=== PATIENT | male | born 1955 | race Caucasian/White ===

== ENCOUNTER → 2017-09-09 | Outpatient (CLI) | payer MEDICARE | LOC: WOUNDCARE 09:05 | PROVIDERS: ATTEND Surgery | DX: L02.215 Cutaneous abscess of perineum (principal); L89.150 Pressure ulcer of sacral region, unstageable; L89.322 Pressure ulcer of left buttock, stage 2; I63.9 Cerebral infarction, unspecified | CPT/HCPCS: 99204 ==

== ENCOUNTER 2017-10-29 23:20 | Inpatient (IN) | payer MEDICARE ==
[~2017-10-29] VITALS: Ht 170.2 cm; Wt 108.9 kg
[~2017-10-29 23:20] MED LIST: ATOR10TA66 PO; CLOP75TA28 PO; DOXA2TAB PO; FURO-124 PO; GABA-488 PO; LABE200T3 PO; LEVE500T6 PO; LISI1TAB8 PO; LOSA50TA36 PO; METO50TA15 PO; OMEG1CAP58 PO; OXYC-471 PO; PRD20T PO; ROPI1TAB2 PO; TAMS0.4C2 PO; TIZA4CAP8 PO
[2017-10-30] VITALS (29 sets, daily range): BP systolic 81–148; BP diastolic 51–86
[2017-10-30] MEDS ORDERED: LACTATED RINGERS 1,000 ML IV ONE ×4 (00:21→03:13)
--- NOTE | 2017-10-30 02:40 | ED General ---
General Stated Complaint: AMS Source of Information: Patient, EMS, Skilled Nursing Records Exam Limitations: No Limitations History of Present Illness Time Seen by Provider: 00:03 Initial Comments patient brought to the ER by EMS with a chief complaint that arm in skilled nursing that the patients blood pressure 70/40 in the been dealing with this the past 3-4 days. The patient arrived from [facility] around 10/25/17 and was being treated with antibiotics and wound care for a sacral wound. He is on a linezolid , Flagyl, cefepime as well as 4 mg of methylprednisolone daily. Patient does not give a whole lot of history other than tell me he hopes that he feels all right and his butt hurts. EMS reports they had a blood pressure about 90/60 when they picked him up on a manual cuff. Patient has on his peng hydrocodone 10 /325 as well as tizanidine. Allergies and Home Medications Allergies Coded Allergies: No Known Drug Allergies (Unverified , 09/19/17) Home Medications Atorvastatin Calcium 10 Mg Tablet, 10 MG PO HS, (Reported) Clopidogrel Bisulfate 75 Mg Tablet, 75 MG PO DAILY, (Reported) Doxazosin Mesylate 2 Mg Tablet, 2 MG PO DAILY, (Reported) Furosemide 40 Mg Tablet, 40 MG PO BID, (Reported) Gabapentin 300 Mg Capsule, 300 MG PO TID, (Reported) Labetalol HCl 200 Mg Tablet, 200 MG PO BID, (Reported) Levetiracetam 500 Mg Tablet, 500 MG PO BID, (Reported) Lisinopril/Hydrochlorothiazide 1 Each Tablet, 1 EACH PO DAILY, (Reported) Losartan Potassium 50 Mg Tablet, 50 MG PO DAILY, (Reported) Metoprolol Tartrate 50 Mg Tablet, 50 MG PO BID, (Reported) [place]-3 Fatty Acids/Fish Oil 1 Each Capsule, 1 EACH PO DAILY, (Reported) Oxycodone HCl/Acetaminophen 1 Each Tablet, 1 EACH PO BID PRN for PAIN-MODERATE, (Reported) Prednisone 20 Mg Tab, 60 MG PO DAILY, #22 (Reported) Take 3 tabs(60mg)daily,decrease by 1/2 tab(10mg)every other day. Ropinirole HCl 1 Mg Tablet, 1 MG PO HS, (Reported) Tamsulosin HCl 0.4 Mg Cap.er.24h, 0.4 MG PO DAILY, (Reported) Tizanidine HCl 4 Mg Capsule, 4 MG PO BID, (Reported) Constitutional: see HPI (patient does not give much meaningful review of systems patient has clinical condition.), No chills, No fever Respiratory: No cough, No short of breath Cardiovascular: No chest pain, No palpitations Gastrointestinal: No abdominal pain, No nausea Genitourinary: other (fully catheter of unknown length of time) Skin: other (sacral decub with pain) Past Ddnktau-Cwyacx-Fjgdfz Hx Patient Social History Alcohol Use: Denies Use Recreational Drug Use: No Recent Foreign Travel: No Contact w/Someone Who Travel: No Recent Hopitalizations: Yes (cva) Immunizations Up To Date Date of Pneumonia Vaccine: Sep 14, 2013 Date of Influenza Vaccine: Aug 12, 2017 Seasonal Allergies Seasonal Allergies: Yes Surgeries History of Surgeries: Yes Surgeries: Appendectomy, Gallbladder, Orthopedic Respiratory History of Respiratory Disorde: Yes Respiratory Disorders: COPD Cardiovascular History of Cardiac Disorders: Yes Cardiac Disorders: Coronary Artery Disease, Heart Attack Neurological History of Neurological Disord: Yes Neurological Disorders: Stroke Genitourinary History of Genitourinary Disor: No Musculoskeletal History of Musculoskeletal Dis: Yes Musculoskeletal Disorders: Chronic Back Pain Endocrine History of Endocrine Disorders: Yes Endocrine Disorders: Diabetes, Insulin dep Cancer History of Cancer: No Family Medical History Significant Family History: No Pertinent Family Hx Physical Exam-Suspected Sepsis Physical Exam Vital Signs Vital Sign - Last 12Hours 10/29/17 23:20 Temp 97.1 Pulse 72 Resp 18 B/P (MAP) 127/72 (90) Pulse Ox 97 O2 Delivery Nasal Cannula O2 Flow Rate 2.00 Capillary Refill : General Appearance: Mild Distress, Obese Eyes: Bilateral Eye Normal Inspection, Bilateral Eye PERRL, Bilateral Eye EOMI HEENT: PERRL/EOMI, TMs Normal, Normal ENT Inspection, Pharynx Normal Neck: Full Range of Motion, Normal Inspection, Non Tender, Supple Respiratory: Chest Non Tender, Lungs Clear, Normal Breath Sounds, No Accessory Muscle Use, No Respiratory Distress Cardiovascular: No Murmur, Normal Peripheral Pulses, Tachycardia, Other (your regular rate) Gastrointestinal: Non Tender, Soft Extremity: Normal Capillary Refill, Normal Inspection, No Pedal Edema Neurologic/Psychiatric: Alert, Other (oriented to person only; able to communicate his pain and desire for something to drink.) Skin: other (there is a large open tunneling wound over the sacrum down to the bone stage IV. Has been debrided recently and has packing in it as well as a dressing over it. It is putting off a modest amount of serous colored drainage on the dressing. There is no purulence and only a mild malodor. The skin around it is ST red but blanches and appears viable.) Focused Exam Evaluation Lactate Level Laboratory Tests 10/29/17 23:53: Lactic Acid Level 2.94*H 10/30/17 02:00: Lactic Acid Level 2.88*H Lactic Acid Level Laboratory Tests Test 10/30/17 02:00 Lactic Acid Level 2.88 MMOL/L (0.50-2.00) *H Progress/Results/Core Measures Suspected Sepsis SIRS Temperature: Pulse: Respiratory Rate: Laboratory Tests 10/29/17 23:53: White Blood Count 20.1H Blood Pressure / Mean: Laboratory Tests 10/29/17 23:53: Lactic Acid Level 2.94*H 10/30/17 02:00: Lactic Acid Level 2.88*H Laboratory Tests 10/29/17 23:53: Creatinine 2.01H, INR Comment 1.1, Platelet Count 223, Total Bilirubin 0.6 Results/Orders Lab Results Laboratory Tests Test 10/29/17 23:50 10/29/17 23:53 10/30/17 02:00 Range/Units Urine Color YELLOW Urine Clarity CLOUDY H Urine pH 5 5-9 Urine Specific [place] 1.020 1.016-1.022 Urine Protein 3+ H NEGATIVE Urine Glucose (UA) NEGATIVE NEGATIVE Urine Ketones 1+ H NEGATIVE Urine Nitrite NEGATIVE NEGATIVE Urine Bilirubin NEGATIVE NEGATIVE Urine Urobilinogen NORMAL NORMAL MG/DL Urine Leukocyte Esterase 3+ H NEGATIVE Urine RBC (Auto) 5+ H NEGATIVE Urine RBC TNTC H /HPF Urine WBC TNTC H /HPF Urine Crystals NONE /LPF Urine Bacteria MOD /HPF Urine Casts NONE /LPF Urine Mucus NEGATIVE /LPF Urine Culture Indicated YES White Blood Count 20.1 H 4.3-11.0 10^3/uL Red Blood Count 3.57 L 4.35-5.85 10^6/uL Hemoglobin 10.8 L 13.3-17.7 G/DL Hematocrit 33 L 40-54 % Mean Corpuscular Volume 91 80-99 FL Mean Corpuscular Hemoglobin 30 25-34 PG Mean Corpuscular Hemoglobin Concent 33 32-36 G/DL Red Cell Distribution Width 16.6 H 10.0-14.5 % Platelet Count 223 130-400 10^3/uL Mean Platelet Volume 10.6 H 7.4-10.4 FL Neutrophils (%) (Auto) 72 42-75 % Lymphocytes (%) (Auto) 17 12-44 % Monocytes (%) (Auto) 11 0-12 % Eosinophils (%) (Auto) 1 0-10 % Basophils (%) (Auto) 0 0-10 % Neutrophils # (Auto) 14.4 H 1.8-7.8 X 10^3 Lymphocytes # (Auto) 3.3 1.0-4.0 X 10^3 Monocytes # (Auto) 2.2 H 0.0-1.0 X 10^3 Eosinophils # (Auto) 0.1 0.0-0.3 10^3/uL Basophils # (Auto) 0.1 0.0-0.1 10^3/uL Neutrophils % (Manual) 75 % Lymphocytes % (Manual) 14 % Monocytes % (Manual) 6 % Eosinophils % (Manual) 1 % Band Neutrophils 4 % Blood Morphology Comment NORMAL Prothrombin Time 14.2 12.2-14.7 SEC INR Comment 1.1 0.8-1.4 Activated Partial Thromboplast Time 29 24-35 SEC Sodium Level 130 L 135-145 MMOL/L Potassium Level 3.4 L 3.6-5.0 MMOL/L Chloride Level 92 L 98-107 MMOL/L Carbon Dioxide Level 25 21-32 MMOL/L Anion Gap 13 5-14 MMOL/L Blood Urea Nitrogen 45 H 7-18 MG/DL Creatinine 2.01 H 0.60-1.30 MG/DL Estimat Glomerular Filtration Rate 34 BUN/Creatinine Ratio 22 Glucose Level 73 70-105 MG/DL Lactic Acid Level 2.94 *H 2.88 *H 0.50-2.00 MMOL/L Calcium Level 8.2 L 8.5-10.1 MG/DL Magnesium Level 1.4 L 1.8-2.4 MG/DL Total Bilirubin 0.6 0.1-1.0 MG/DL Aspartate Amino Transf (AST/SGOT) 14 5-34 U/L Alanine Aminotransferase (ALT/SGPT) 26 0-55 U/L Alkaline Phosphatase 175 H 40-136 U/L Total Protein 5.2 L 6.4-8.2 GM/DL Albumin 2.7 L 3.2-4.5 GM/DL My Orders Orders - ARMOND OLMSTEAD Cbc With Automated Diff (10/30/17 03:11) Comprehensive Metabolic Panel (10/30/17 03:11) Lactic Acid Analyzer (10/30/17 03:11) Blood Culture (10/30/17 03:11) Sputum Culture (10/30/17 03:11) Ua Culture If Indicated (10/30/17 03:11) Protime With Inr (10/30/17 03:11) Partial Thromboplastin Time (10/30/17 03:11) Chest 1 View, Ap/Pa Only (10/30/17 03:11) O2 (10/30/17 03:11) Saline Lock/Iv-Start (10/30/17 03:11) Vital Signs Adult Sepsis Patie Q1H (10/30/17 03:11) Remove Rings In Anticipation O (10/30/17 03:11) Lactated Ringers (Lr 1000 Ml Iv Solution (10/30/17 03:11) Magnesium (10/30/17 03:11) Lactated Ringers (Lr 1000 Ml Iv Solution (10/30/17 03:13) Ns Iv 1000 Ml (Sodium Chloride 0.9%) (10/30/17 03:30) Urine Culture (10/29/17 23:50) Manual Differential (10/29/17 23:53) Acetaminophen Tablet (Tylenol Tablet) (10/30/17 03:45) Vital Signs/I&O Vital Sign - Last 12Hours 10/29/17 10/29/17 10/30/17 23:20 23:25 03:40 Temp 97.1 97.1 Pulse 72 78 Resp 18 17 B/P (MAP) 127/72 (90) Pulse Ox 97 98 98 O2 Delivery Nasal Cannula Nasal Cannula Nasal Cannula O2 Flow Rate 2.00 2.00 2.00 Capillary Refill : Progress Note : Time: 02:38 Progress Note Sepsis with some rough-looking urinalysis. The patient is already on Flonase liquid which would cover against MRSA and cefepime to cover against pseudomonas and other gram negatives as well as Flagyl. Unlikely that he is still having a urinary tract infection. Probably irritation and colonization from urinary catheter. Based on what little history I could obtain from EMS he is probably having an iatrogenic hypotension from his Lasix, amlodipine, Dr. Sutton, metoprolol. We will hold these medications and put him in the ICU fluids. So far his blood pressure is been stable. Were unsure how long he's been on the methylprednisolone so we'll see how he is doing in the morning whether we need to have the inpatient service wean the medicine, or continue the medicine. Patient had a tachycardia with what felt like an irregular pulse but he is adamantly refusing an EKG. We'll then catch it upstairs. Diagnostic Imaging Diagonstic Imaging: Xray Plain Films/CT/US/NM/MRI: chest (1v) Comments Small pleural effusion in the left lower lung. No comparisons. Reviewed: Reviewed by Me Departure Impression Impression: Primary Impression: Hypotension, iatrogenic Additional Impressions: Sacral decubitus ulcer, stage IV Indwelling Rios catheter present Disposition: ADMITTED INPATIENT Condition: Stable Admissions Decision to Admit Reason: Admit from ER (General) Decision to Admit/Date: Oct 30, 2017 Time/Decision to Admit Time: 02:00 Departure-Patient Inst. Referrals: JESUS MANUEL MCFARLANE DO (PCP) Primary Care Physician Copy Copies To 1: JOE GROVER MD, TITUS J Oct 30, 2017 02:40
[2017-10-30 03:21] LABS: CREATININE SERUM 2.01 MG/DL (0.60-1.30); POTASSIUM 3.4 MMOL/L (3.6-5.0)
[2017-10-30 03:22] LABS: ALBUMIN 2.7 GM/DL (3.2-4.5); BILIRUBIN,TOTAL 0.6 MG/DL (0.1-1.0); CALCIUM 8.2 MG/DL (8.5-10.1); INR 1.1 (0.8-1.4); MAGNESIUM 1.4 MG/DL (1.8-2.4); PROTHROMBIN TIME PATIENT 14.2 SEC (12.2-14.7); TOTAL PROTEIN 5.2 GM/DL (6.4-8.2)
[2017-10-30 03:23] LABS: KETONES,URINE 1+ (NEGATIVE); NITRITE,URINE NEGATIVE (NEGATIVE); PH,URINE 5 (5-9); PROTEIN,URINE 3+ (NEGATIVE)
[2017-10-30 03:24] LABS: BILIRUBIN,URINE NEGATIVE (NEGATIVE); LEUKOCYTE ESTERASE ,URINE 3+ (NEGATIVE); UROBILINOGEN,URINE NORMAL (NORMAL); WBC,URINE TNTC /HPF
[2017-10-30 03:27] LABS: BASOPHILS # (AUTO) 0.1 10^3/uL (0.0-0.1); BASOPHILS % (AUTO) 0 % (0-10); EOSINOPHILS # (AUTO) 0.1 10^3/uL (0.0-0.3); EOSINOPHILS % (AUTO) 1 % (0-10); LYMPHOCYTES # (AUTO) 3.3 X 10^3 (1.0-4.0); LYMPHOCYTES % (AUTO) 17 % (12-44); MEAN CORPUSCULAR HEMOGLOBIN 30 PG (25-34); MEAN CORPUSCULAR HGB CONC 33 G/DL (32-36); MEAN CORPUSCULAR VOLUME 91 FL (80-99); MEAN PLATELET VOLUME 10.6 FL (7.4-10.4); MONOCYTES # (AUTO) 2.2 X 10^3 (0.0-1.0); MONOCYTES % (AUTO) 11 % (0-12); NEUTROPHILS # (AUTO) 14.4 X 10^3 (1.8-7.8); NEUTROPHILS % (AUTO) 72 % (42-75); PLATELET COUNT 223 10^3/uL (130-400); RED BLOOD COUNT 3.57 10^6/uL (4.35-5.85); RED CELL DISTRIBUTION WIDTH 16.6 % (10.0-14.5); WHITE BLOOD COUNT 20.1 10^3/uL (4.3-11.0)
[2017-10-30 03:28] LABS: BAND NEUTROPHILS 4 %; EOSINOPHILS % (MANUAL) 1 %; LYMPHOCYTES % (MANUAL) 14 %; NEUTROPHILS % (MANUAL) 75 %
[2017-10-30] MEDS ORDERED: NS IV 1000 ML 1,000 ML IV SCH (03:30)
[2017-10-30] MEDS ORDERED: ACETAMINOPHEN 500 MG TAB (TYLENOL) PO ONE (03:45)
[2017-10-30] MEDS: NS IV 1000 ML 1,000 ML IV SCH ×6 (04:56→18:28)
[2017-10-30] MEDS ORDERED: LINEZOLID 600MG/300ML IVPB (PRE-MIX) IV SCH ×2 (05:00→21:00)
[2017-10-30] MEDS ORDERED: NS IV PRN (05:00)
[2017-10-30] MEDS ORDERED: CEFEPIME 2 GM/NS 50 ML IVPB IV SCH ×2 (05:00)
[2017-10-30 05:25] LABS: BASOPHILS # (AUTO) 0.1 10^3/uL (0.0-0.1); BASOPHILS % (AUTO) 1 % (0-10); EOSINOPHILS # (AUTO) 0.1 10^3/uL (0.0-0.3); EOSINOPHILS % (AUTO) 1 % (0-10); LYMPHOCYTES # (AUTO) 2.5 X 10^3 (1.0-4.0); LYMPHOCYTES % (AUTO) 17 % (12-44); MEAN CORPUSCULAR HEMOGLOBIN 30 PG (25-34); MEAN CORPUSCULAR HGB CONC 33 G/DL (32-36); MEAN CORPUSCULAR VOLUME 91 FL (80-99); MEAN PLATELET VOLUME 10.5 FL (7.4-10.4); MONOCYTES # (AUTO) 1.5 X 10^3 (0.0-1.0); MONOCYTES % (AUTO) 11 % (0-12); NEUTROPHILS # (AUTO) 10.4 X 10^3 (1.8-7.8); NEUTROPHILS % (AUTO) 71 % (42-75); PLATELET COUNT 207 10^3/uL (130-400); RED BLOOD COUNT 3.53 10^6/uL (4.35-5.85); RED CELL DISTRIBUTION WIDTH 16.6 % (10.0-14.5); WHITE BLOOD COUNT 14.6 10^3/uL (4.3-11.0)
[2017-10-30] MEDS: metroNIDAZOLE 500 MG (FLAGYL) TAB PO SCH ×3 (05:41→21:06)
[2017-10-30 05:49] LABS: ALBUMIN 2.5 GM/DL (3.2-4.5); BILIRUBIN,TOTAL 0.6 MG/DL (0.1-1.0); CALCIUM 7.9 MG/DL (8.5-10.1); CREATININE SERUM 1.68 MG/DL (0.60-1.30); MAGNESIUM 1.1 MG/DL (1.8-2.4); PHOSPHORUS 3.2 MG/DL (2.3-4.7); POTASSIUM 3.1 MMOL/L (3.6-5.0); TOTAL PROTEIN 4.8 GM/DL (6.4-8.2)
[2017-10-30] MEDS: inSUlin (REGULAR) HUMAN 1 UNIT/0.01 ML (CHARGE PER UNIT) SC SCH ×3 (06:22→17:58)
[2017-10-30] MEDS: POTASSIUM CL 10 MEQ/50 ML IVPB (PRE-MIX) IV SCH ×4 (07:26→10:23)
[2017-10-30] MEDS: MAGNESIUM 1 GM/D5W 100 ML IVPB IV SCH ×2 (07:27→08:42)
--- NOTE | 2017-10-30 08:09 | Diagnostic Imaging Report ---
Portable upright radiograph of the chest. INDICATION: Sepsis. FINDINGS: There is a right internal jugular central venous catheter with the tip at the cavoatrial junction. There is moderate cardiomegaly. There is mid right lung infiltrates or atelectasis and left basilar patchy infiltrate or atelectasis is also suggested. There is a possible small left pleural effusion. No pneumothorax. No significant change from the previous exam. IMPRESSION: Right perihilar and left basilar infiltrates or atelectasis. Cardiomegaly. Dictated by: Dictated on workstation # [id number]
--- NOTE | 2017-10-30 08:10 | History & Physical-Hospitalist ---
HPI History of Present Illness: HPI/Chief Complaint Pt is a 62yoCM with a reported history of CVA, COPD, HTN, seizure disorder who presented for hypotension from his NH. He is unable to provide me any history other than telling me he feels bad. He believes he transferred here from [facility] and does not recall being in a NH. I called and spoke with his RN at [facility]. She reports they received him on 10/25 form [facility]. She states he had a "stroke" a few months ago that left him with "bilateral weakness" and he developed a sacral pressure wound at a different NH during his recovery from the stroke. He was discharged home from that NH and quickly was readmitted to the hospital for "wound infection" and underwent debridement at [facility] on an unknown date. He nurse also reports that he coded on 10/09 at [facility] but she is unsure the details of that event or his recovery. He has an IJ in placed and the NH is also unsure the duration of it. She reports that he is normally able to feed himself and oriented x4 but the past few days has been more drowsy and disoriented. Source: patient, old records Exam Limitations: clinical condition Date Seen 10/30/17 Time Seen by Provider: 07:45 Attending Physician Michael Sanon MD PCP Warren Kwong DO Referring Physician Date of Admission Oct 30, 2017 at 02:30 Home Medications & Allergies Home Medications Reviewed patient Home Medication Reconciliation Form Allergies Allergies Coded Allergies No Known Drug Allergies (Nfrdfnrxel42/9/17) Past Vpocjlw-Bwtymy-Tfcxyo Hx Patient Social History Marrital Status: Alcohol Use: Denies Use Recreational Drug Use: No Smoking Status: Unknown if Ever Smoked 2nd Hand Smoke Exposure: No Physical Abuse Screen: No Sexual Abuse: No Recent Foreign Travel: No Contact w/other who traveled: No Recent Hopitalizations: Yes (cva) Recent Infectious Disease Expo: No Immunizations Up To Date Pediatric: No Date of Pneumonia Vaccine: Sep 14, 2013 Date of Influenza Vaccine: Aug 12, 2017 Seasonal Allergies Seasonal Allergies: Yes Surgeries Yes Appendectomy, Gallbladder, Orthopedic Respiratory Yes Cardiovascular Yes Coronary Artery Disease, Heart Attack Neurological Yes Stroke Genitourinary No Gastrointestinal Yes Gastroesophageal Reflux Musculoskeletal Yes Chronic Back Pain Endocrine History of Endocrine Disorders: Yes Endocrine Disorders: Diabetes, Insulin dep HEENT History of HEENT Disorders: No Cancer No Integumentary History of Skin or Integumenta: Yes (CHRONIC SACRAL WOUND) Family Medical History Significant Family History: No Pertinent Family Hx Review of Systems ROS-Unable to Obtain: Clinical condition Constitutional: see HPI Physical Exam Physical Exam Vital Signs Vital Sign - Last 12Hours 10/29/17 23:20 Temp 97.1 Pulse 72 Resp 18 B/P (MAP) 127/72 (90) Pulse Ox 97 O2 Delivery Nasal Cannula O2 Flow Rate 2.00 Capillary Refill : Less Than 3 Seconds General Appearance: Chronically ill HEENT: PERRL/EOMI, Moist Mucous Membranes, No Scleral Icterus (L), No Scleral Icterus (R) Neck: Non Tender, Supple Respiratory: Lungs Clear, No Respiratory Distress Cardiovascular: Regular Rate, Rhythm, No Murmur Gastrointestinal: Normal Bowel Sounds, Non Tender, Soft Extremity: Normal Capillary Refill, No Calf Tenderness, No Pedal Edema Neurologic/Psychiatric: Alert, Other (oriented to self and place- not to situation) Results Results/Procedures Lab Laboratory Tests 10/29/17 23:53 10/30/17 05:06 Assessment/Plan Admission Diagnosis Severe Sepsis Diagnosis/Problems Diagnosis/Problems (1) Severe sepsis Status: Acute Assessment & Plan: WBC 20 with tachycardia Infection source ?UTI or bloodstream from prolonged IJ or sacral wound or possible infiltrate on CXR Urine culture sent, Blood cultures sent MAP has remained above 65 Cont on Vanc, Cefepime, and Flagyl Order placed for PICC- will DC IJ when PICC in place (2) Acute kidney injury superimposed on chronic kidney disease Status: Acute Assessment & Plan: Likely due to sepsis Continue IVF History of acute renal failure believed to have required temp HD Monitor UOP (currently adequate) (3) COPD (chronic obstructive pulmonary disease) Status: Chronic Assessment & Plan: MAT protocol Pulm consulted, appreciate recs Qualifiers: Qualified Codes: J44.9 - Chronic obstructive pulmonary disease, unspecified (4) Normocytic anemia Status: Chronic Assessment & Plan: Near baseline (5) Hypokalemia Assessment & Plan: On protocol (6) Hypomagnesemia Assessment & Plan: On protocol (7) Essential (primary) hypertension Assessment & Plan: Hold antihypertensives (8) Seizure disorder Assessment & Plan: Continue [facility] Clinical Quality Measures DVT/VTE Risk/Contraindication: Risk Factor Score Per Nursin RFS Level Per Nursing on Admit: 4+=Very High CONTRERAS MATT MD Oct 30, 2017 8:10 am
[2017-10-30] MEDS: MICONAZOLE 2% POWDER (DESENEX AF) 90 GM TOP SCH ×2 (08:33→21:06)
[2017-10-30] MEDS: LACTOBACILLUS Acidoph/Bulgar (LACTINEX/FLORANEX) TAB PO SCH ×2 (08:34→21:06)
--- NOTE | 2017-10-30 08:51 | Pulmonary Consultation ---
History of Present Illness History of Present Illness Date of Consultation 10/30/17 08:39 Time Seen by Provider: 08:39 Date of Admission History of Present Illness 62yo with hx of CVA, COPD, seizure disorder presented to ED from [facility] secondary to hypotension. Pt was hospitalized at [facility] secondary to his CVA until and has developed a sacral pressure ulcer. Pt has also recently undergone wound debridement at [facility]. Pt also coded while at [facility] details are unknown. Pt still has a IJ in place of unknown duration. pt is confused and it is difficult to obtain accurate ROS. I am consulted for ICU management. Allergies and Home Medications Allergies Coded Allergies: No Known Drug Allergies (Unverified , 09/19/17) Home Medications Atorvastatin Calcium 10 Mg Tablet, 10 MG PO HS, (Reported) Clopidogrel Bisulfate 75 Mg Tablet, 75 MG PO DAILY, (Reported) Doxazosin Mesylate 2 Mg Tablet, 2 MG PO DAILY, (Reported) Furosemide 40 Mg Tablet, 40 MG PO BID, (Reported) Gabapentin 300 Mg Capsule, 300 MG PO TID, (Reported) Labetalol HCl 200 Mg Tablet, 200 MG PO BID, (Reported) Levetiracetam 500 Mg Tablet, 500 MG PO BID, (Reported) Lisinopril/Hydrochlorothiazide 1 Each Tablet, 1 EACH PO DAILY, (Reported) Losartan Potassium 50 Mg Tablet, 50 MG PO DAILY, (Reported) Metoprolol Tartrate 50 Mg Tablet, 50 MG PO BID, (Reported) [place]-3 Fatty Acids/Fish Oil 1 Each Capsule, 1 EACH PO DAILY, (Reported) Oxycodone HCl/Acetaminophen 1 Each Tablet, 1 EACH PO BID PRN for PAIN-MODERATE, (Reported) Prednisone 20 Mg Tab, 60 MG PO DAILY, #22 (Reported) Take 3 tabs(60mg)daily,decrease by 1/2 tab(10mg)every other day. Ropinirole HCl 1 Mg Tablet, 1 MG PO HS, (Reported) Tamsulosin HCl 0.4 Mg Cap.er.24h, 0.4 MG PO DAILY, (Reported) Tizanidine HCl 4 Mg Capsule, 4 MG PO BID, (Reported) Past Eukzztg-Eqkutc-Hvgmjb Hx Patient Social History Alcohol Use: Denies Use Recreational Drug Use: No Smoking Status: Unknown if Ever Smoked 2nd Hand Smoke Exposure: No Recent Foreign Travel: No Contact w/Someone Who Travel: No Recent Infectious Disease Expo: No Recent Hopitalizations: Yes (cva) Physical Abuse: No Sexual Abuse: No Immunizations Up To Date PED Vaccines UTD: No Date of Pneumonia Vaccine: Sep 14, 2013 Date of Influenza Vaccine: Aug 12, 2017 Seasonal Allergies Seasonal Allergies: Yes Surgeries History of Surgeries: Yes Surgeries: Appendectomy, Gallbladder, Orthopedic Respiratory History of Respiratory Disorde: Yes Respiratory Disorders: COPD Cardiovascular History of Cardiac Disorders: Yes Cardiac Disorders: Coronary Artery Disease, Heart Attack Neurological History of Neurological Disord: Yes Neurological Disorders: Stroke Genitourinary History of Genitourinary Disor: No Gastrointestinal History of Gastrointestinal Di: Yes Gastrointestinal Disorders: Gastroesophageal Reflux Musculoskeletal History of Musculoskeletal Dis: Yes Musculoskeletal Disorders: Chronic Back Pain Endocrine History of Endocrine Disorders: Yes Endocrine Disorders: Diabetes, Insulin dep HEENT History of HEENT Disorders: No Cancer History of Cancer: No Psychosocial Suicide Risk Score: 0 Integumentary History of Skin or Integumenta: Yes (CHRONIC SACRAL WOUND) Family Medical History Significant Family History: No Pertinent Family Hx Review of Systems Time Seen by Provider: 09:13 Exam Exam Vital Signs Date Time Temp Pulse Resp B/P (MAP) Pulse Ox O2 Delivery O2 Flow Rate FiO2 10/30/17 08:00 89 10 101/65 (77) 98 Nasal Cannula 2.00 10/30/17 07:20 98.0 10/30/17 07:15 90 14 102/56 (71) 98 Nasal Cannula 2.00 10/30/17 07:00 89 10 101/58 (72) 99 Nasal Cannula 3.00 10/30/17 06:59 89 10/30/17 06:15 88 20 103/53 (70) 99 Nasal Cannula 3.00 10/30/17 06:00 91 14 89/54 (66) 99 Nasal Cannula 3.00 10/30/17 05:45 88 13 101/54 (70) 98 Nasal Cannula 3.00 10/30/17 05:30 86 12 82/58 (66) 99 Nasal Cannula 3.00 10/30/17 05:15 87 13 103/51 (68) 98 Nasal Cannula 3.00 10/30/17 05:00 87 31 101/58 (72) 99 Nasal Cannula 3.00 10/30/17 04:45 86 13 81/58 (66) 99 Nasal Cannula 3.00 10/30/17 04:30 85 17 96/71 (79) 99 Nasal Cannula 3.00 10/30/17 04:15 85 14 84/56 (65) 99 Nasal Cannula 3.00 10/30/17 04:00 86 14 94/65 (75) 98 Nasal Cannula 3.00 10/30/17 03:59 86 10/30/17 03:50 97.7 85 14 97/66 (76) 99 Nasal Cannula 3.00 10/30/17 03:45 99 Nasal Cannula 3.00 10/30/17 03:40 97.1 78 17 98 Nasal Cannula 2.00 10/29/17 23:25 98 Nasal Cannula 2.00 10/29/17 23:20 97.1 72 18 127/72 (90) 97 Nasal Cannula 2.00 I & O 10/30/17 06:59 Intake Total 3100 ml Output Total 1775 ml Balance 1325 ml General Appearance: No Apparent Distress, WD/WN HEENT: PERRL/EOMI, Moist Mucous Membranes Neck: Non Tender, Supple Respiratory: Lungs Clear, No Respiratory Distress Cardiovascular: Regular Rate, Rhythm, No Murmur Capillary Refill: Less Than 3 Seconds Extremity: Normal Capillary Refill, No Calf Tenderness Neurologic/Psychiatric: Alert, Oriented x3, Normal Mood/Affect Skin: Normal Color, Warm/Dry Results Lab Laboratory Tests 10/29/17 23:53 10/30/17 05:06 Assessment/Plan Assessment/Plan Severe Sepsis secondary to wound r/o bacteremia from Right IJ that was placed at [facility] prior to his discharge. -Blood cultures with 2 from central line -Culture central line tip -D/C central line and obtain PICC -Urine UA and C&S -Change abx to vanco, cefepime, and Flagyl -obtain records from [facility] Metabolic lactic acidosis -IVF ARF -IVF and monitor Altered MS / metabolic encephalopathy -secondary to sepsis COPD - not in AE Seizure disorder -Keppra 255 Clinical Quality Measures DVT/VTE Risk/Contraindication: Risk Factor Score Per Nursin RFS Level Per Nursing on Admit: 4+=Very High SARAH OROPEZA DO Oct 30, 2017 08:51
[2017-10-30] MEDS ORDERED: NYSTATIN POWDER 100,000 UNITS 15 GM BTL TOP SCH (09:00)
[2017-10-30] MEDS ORDERED: inSUlin ASPART (NovoLOG) 1 UNIT/0.01 ML (CHARGE PER UNIT) SC SCH (09:00)
[2017-10-30] MEDS ORDERED: PHARMACY TO DOSE IV SCH (09:15)
[2017-10-30] MEDS ORDERED: GABA-488 PO (09:18)
[2017-10-30] MEDS ORDERED: ATOR40TA70 PO (09:18)
[2017-10-30] MEDS ORDERED: ACET-2650 PO (09:18)
[2017-10-30] MEDS ORDERED: ASPI-983 PO (09:18)
[2017-10-30] MEDS ORDERED: CEFE2VIA5 IV (09:18)
[2017-10-30] MEDS ORDERED: AMLO10TA2 PO (09:18)
[2017-10-30] MEDS ORDERED: LACT1CAP39 PO (09:18)
[2017-10-30] MEDS ORDERED: NYST15CR TOP (09:18)
[2017-10-30] MEDS ORDERED: CLOP75TA69 PO (09:18)
[2017-10-30] MEDS ORDERED: METR500T21 PO (09:18)
[2017-10-30] MEDS ORDERED: INSU100V6 SQ (09:18)
[2017-10-30] MEDS ORDERED: SENN-140 PO (09:18)
[2017-10-30] MEDS ORDERED: RT-ALBUINH IH (09:18)
[2017-10-30] MEDS ORDERED: TIZA2TAB3 PO (09:18)
[2017-10-30] MEDS ORDERED: METH4TAB11 PO (09:18)
[2017-10-30] MEDS ORDERED: LINE600I6 IV (09:18)
[2017-10-30] MEDS ORDERED: BISA10SU6 RC (09:18)
[2017-10-30] MEDS ORDERED: HYDR-3820 PO (09:18)
[2017-10-30] MEDS ORDERED: CALC500T3 PO (09:18)
[2017-10-30] MEDS ORDERED: PANT40TA2 PO (09:18)
[2017-10-30] MEDS ORDERED: INSU100V SQ (09:18)
[2017-10-30] MEDS ORDERED: VANCOMYCIN 2000 MG/NS 500 ML IVPB IV NR ×2 (09:30)
[2017-10-30] MEDS: HYDROcodone/APAP 5 MG/325 MG (LORTAB) TAB PO PRN (13:12)
[2017-10-30 14:40] LABS: MAGNESIUM 1.6 MG/DL (1.8-2.4); POTASSIUM 3.6 MMOL/L (3.6-5.0)
--- NOTE | 2017-10-30 14:54 | ST Dysphagia Evaluation ---
Speech Evaluation-General Medical Diagnosis Severe Sepsis Onset Date: Oct 30, 2017 Therapy Diagnosis Therapy Diagnosis: Mild Oral Dysphagia Precautions Precautions: Aspiration Precautions/Isolations: Fall Prevention, Standard Precautions Referral Referring Physician: Dr. Raven Chahal Reason for Referral: Evaluation/Treatment Clinical Bedside Swallowing Evaluation Medical History Pertinent Medical History: CAD, COPD, CVA, DM, GERD Speech PLF/Current-Dysphagia Prior Level of Function The patient denied consistent signs/symptoms of aspiration prior to admission. Per patient, "sometimes bread and hamburger buns get stuck." The patient localized the globus sensation to the level of the proximal to mid esophagus. Subjective The patient was seated upright in bed upon entrance. The patient was agreeable to participation in the dysphagia evaluation and remained cooperative throughout the session. Per patient's RN, the patient swallowed his medication without signs/symptoms of aspiration. Cognitive Status Patient Orientation: Person, Place, Situation Oral Motor Skills Dentition: Natural (Lower/ Edentulous- Upper.) Ability to Follow Directions: Good The patient is NPO pending the results of the swallowing evaluation. Oral Expression Ability: Mild Impairment Voice Voice Phonatory-Based Quality: Harsh, Glottal Mathis Voice Pitch: Normal Voice Loudness: Mildly Soft/Quiet Face Facial Symmetry: Asymmetrical (A slight left labial droop appeared at rest.) Oral-Facial Assessment Oral-Facial Dentition: Normal Labial Seal Description: Normal Smile: Normal Puff Cheeks: Normal Lingual Protrusion: Normal Lingual ROM: Normal Lingual Strength: Normal Pharynx Velopharyngeal Move.: Normal Volitional Dry Swallow: Yes Voluntary Cough: Yes Can Clear Throat Volitionally: Yes Dysphagia Evaluation Consistencies Presented: Regular, Thin Liquid, Pureed - The patient displayed reduced mastication of solid consistencies which appeared secondary to absent upper dentition. - No pharyngeal deficits were noted throughout the evaluation. - No signs/symptoms of aspiration were demonstrated with multiple trials of thin liquid (via teaspoon, cup sip, or straw), puree, or solid consistencies. The patient's vocal quality remained clear and his SpO2% remained at 97% throughout the evaluation. Dietary Recommendations: Mechanical Soft Liquid Recommendations: Thin Swallowing Precautions: Alternate Liquids/Solids, Small Bites and Sips, Sitting Upright 90 Degrees Dysphagia Evaluation Summary Mild oral dysphagia characterized by reduced mastication of solid consistencies. Speech-Plan Treatment Plan Speech Therapy Treatment Plan: Discontinue ST Evaluation, only. Frequency: 1 time per month Estimated Hrs Per Day: Other Rehab Potential: Good Safety Risks/Education Teaching Recipient: Patient Teaching Methods: Discussion Response to Teaching: Verbalize Understanding Education Topics Provided: Results, Recommendations, Plan of Care, Signs/Symptoms of Aspiration, Swallowing Strategies Time Speech Therapy Time In: 14:00 Speech Therapy Time Out: 14:15 Total Billed Time: 15 Billed Treatment Time 1, ALICE MONTGOMERY Oct 30, 2017 14:54
--- NOTE | 2017-10-30 18:40 | Wound Care Progress Note ---
Subjective Subjective Subjective/Events-last exam The patient is a 62 year old male known to me from a previous episode of care for the sacral pressure ulcer. The patient has had a complex intercurrent history of complications and care since last seen. He was most recently admitted for suspected sepsis with an infected sacral ulcer. He complains of pain in the sacral area. He has had a stroke. He has limited mobility. He was a resident in a LTC facility at the time of transfer to the hospital recently. PMH: CVA, COPD, DM, HTN, CAD, OR, previous cardiac arrest , seizure disorder. Review of Systems Date Seen by Provider: Oct 30, 2017 Time Seen by Provider: 17:15 General: No Chills Pulmonary: No Dyspnea Cardiovascular: No: Chest Pain Musculoskeletal: shoulder pain (L, when lying on that side.) Objective Exam Last Set of Vital Signs Vital Signs Date Time Temp Pulse Resp B/P (MAP) Pulse Ox O2 Delivery O2 Flow Rate FiO2 10/30/17 18:00 86 11 132/79 (96) 96 Nasal Cannula 2.00 10/30/17 15:13 98.0 Capillary Refill : Less Than 3 Seconds General: Alert, No Acute Distress Lungs: Normal Air Movement Skin: Other (Sacral ulcer --- Stellate wound 7.5 x 7.0 x 4.2 cm, base 90% granulation, 10% slough. Mod. s.s. drainage.) Results Lab Laboratory Tests 10/29/17 23:50: Urine Color YELLOW, Urine Clarity CLOUDYH, Urine pH 5, Urine Specific [place] 1.020, Urine Protein 3+H, Urine Glucose (UA) NEGATIVE, Urine Ketones 1+H, Urine Nitrite NEGATIVE, Urine Bilirubin NEGATIVE, Urine Urobilinogen NORMAL, Urine Leukocyte Esterase 3+H, Urine RBC (Auto) 5+H, Urine RBC TNTCH, Urine WBC TNTCH, Urine Crystals NONE, Urine Bacteria MOD, Urine Casts NONE, Urine Mucus NEGATIVE , Urine Culture Indicated YES 10/29/17 23:53: White Blood Count 20.1H, Red Blood Count 3.57L, Hemoglobin 10.8L, Hematocrit 33L , Mean Corpuscular Volume 91, Mean Corpuscular Hemoglobin 30, Mean Corpuscular Hemoglobin Concent 33, Red Cell Distribution Width 16.6H, Platelet Count 223, Mean Platelet Volume 10.6H, Neutrophils (%) (Auto) 72, Lymphocytes (%) (Auto) 17 , Monocytes (%) (Auto) 11, Eosinophils (%) (Auto) 1, Basophils (%) (Auto) 0, Neutrophils # (Auto) 14.4H, Lymphocytes # (Auto) 3.3, Monocytes # (Auto) 2.2H, Eosinophils # (Auto) 0.1, Basophils # (Auto) 0.1, Neutrophils % (Manual) 75, Lymphocytes % (Manual) 14, Monocytes % (Manual) 6, Eosinophils % (Manual) 1, Band Neutrophils 4, Blood Morphology Comment NORMAL, Prothrombin Time 14.2, INR Comment 1.1, Activated Partial Thromboplast Time 29, Sodium Level 130L, Potassium Level 3.4L, Chloride Level 92L, Carbon Dioxide Level 25, Anion Gap 13 , Blood Urea Nitrogen 45H, Creatinine 2.01H, Estimat Glomerular Filtration Rate 34, BUN/Creatinine Ratio 22, Glucose Level 73, Lactic Acid Level 2.94*H, Calcium Level 8.2L, Magnesium Level 1.4L, Total Bilirubin 0.6, Aspartate Amino Transf (AST/SGOT) 14, Alanine Aminotransferase (ALT/SGPT) 26, Alkaline Phosphatase 175H, Total Protein 5.2L, Albumin 2.7L 10/30/17 02:00: Lactic Acid Level 2.88*H 10/30/17 02:30: Lab Scanned Report LAB Reports 10/30/17 05:06: White Blood Count 14.6H, Red Blood Count 3.53L, Hemoglobin 10.7L, Hematocrit 32L , Mean Corpuscular Volume 91, Mean Corpuscular Hemoglobin 30, Mean Corpuscular Hemoglobin Concent 33, Red Cell Distribution Width 16.6H, Platelet Count 207, Mean Platelet Volume 10.5H, Neutrophils (%) (Auto) 71, Lymphocytes (%) (Auto) 17 , Monocytes (%) (Auto) 11, Eosinophils (%) (Auto) 1, Basophils (%) (Auto) 1, Neutrophils # (Auto) 10.4H, Lymphocytes # (Auto) 2.5, Monocytes # (Auto) 1.5H, Eosinophils # (Auto) 0.1, Basophils # (Auto) 0.1, Sodium Level 133L, Potassium Level 3.1L, Chloride Level 98, Carbon Dioxide Level 25, Anion Gap 10, Blood Urea Nitrogen 40H, Creatinine 1.68H, Estimat Glomerular Filtration Rate 42, BUN/ Creatinine Ratio 24, Glucose Level 73, Calcium Level 7.9L, Phosphorus Level 3.2 , Magnesium Level 1.1L, Total Bilirubin 0.6, Aspartate Amino Transf (AST/SGOT) 14, Alanine Aminotransferase (ALT/SGPT) 23, Alkaline Phosphatase 165H, Total Protein 4.8L, Albumin 2.5L 10/30/17 09:37: Lactic Acid Level 1.64 10/30/17 11:35: Glucometer 91 10/30/17 14:12: Potassium Level 3.6, Magnesium Level 1.6L 10/30/17 17:50: Glucometer 72 Microbiology 10/30/17 Blood Culture - Preliminary, Resulted No growth 10/29/17 Urine Culture - Preliminary, Resulted Yeast Species Assessment/Plan Assessment/Plan Assessment/Plan 1. Sacral pressure ulcer, Stage 4, present on admission. 2. Debility. 3. Diabetes mellitus, with ulcer of sacral area. Plan: Frequent repositioning, low air loss mattress, BID Dakin's dressings. Will follow in house and as out-patient after discharge. MARTIN JOHNSON MD Oct 30, 2017 18:40
[2017-10-30] MEDS ORDERED: inSUlin DETERMIR 1 UNIT/0.01 ML (LEVEMIR) CHARGE PER UNIT SQ SCH (21:00)
[2017-10-30] MEDS: LEVETIRACETAM 500 MG (KEPPRA) TAB PO SCH (21:05)
[2017-10-30] MEDS: rOPINIRole 1 MG (REQUIP) TABLET PO SCH (21:06)
[2017-10-30] MEDS: DAKIN'S 1/4 STRENGTH (0.125%) 473 ML BTL TOP SCH (21:06)
[2017-10-31] VITALS (15 sets, daily range): BP systolic 119–149; BP diastolic 61–86
[2017-10-31] MEDS: NS IV 1000 ML 1,000 ML IV SCH ×4 (01:15→17:51)
[2017-10-31] MEDS: HYDROcodone/APAP 5 MG/325 MG (LORTAB) TAB PO PRN ×4 (02:59→21:38)
[2017-10-31 05:17] LABS: WHITE BLOOD COUNT 15.3 10^3/uL (4.3-11.0)
[2017-10-31 05:18] LABS: BASOPHILS # (AUTO) 0.1 10^3/uL (0.0-0.1); BASOPHILS % (AUTO) 1 % (0-10); EOSINOPHILS # (AUTO) 0.1 10^3/uL (0.0-0.3); EOSINOPHILS % (AUTO) 1 % (0-10); LYMPHOCYTES % (AUTO) 13 % (12-44); MEAN CORPUSCULAR HEMOGLOBIN 31 PG (25-34); MEAN CORPUSCULAR HGB CONC 33 G/DL (32-36); MEAN CORPUSCULAR VOLUME 94 FL (80-99); MEAN PLATELET VOLUME 10.3 FL (7.4-10.4); MONOCYTES # (AUTO) 1.3 X 10^3 (0.0-1.0); MONOCYTES % (AUTO) 9 % (0-12); NEUTROPHILS # (AUTO) 11.8 X 10^3 (1.8-7.8); NEUTROPHILS % (AUTO) 77 % (42-75); PLATELET COUNT 189 10^3/uL (130-400); RED CELL DISTRIBUTION WIDTH 17.2 % (10.0-14.5)
[2017-10-31 05:43] LABS: ALANINE AMINOTRANSFERASE 22 U/L (0-55); ALBUMIN 2.5 GM/DL (3.2-4.5); ANION GAP 12 MMOL/L (5-14); ASPARTATE AMINO TRANSFERASE 17 U/L (5-34); BILIRUBIN,TOTAL 0.5 MG/DL (0.1-1.0); BLOOD UREA NITROGEN 29 MG/DL (7-18); BUN/CREATININE RATIO 26; CALCIUM 8.1 MG/DL (8.5-10.1); CARBON DIOXIDE 22 MMOL/L (21-32); CHLORIDE 106 MMOL/L (98-107); CREATININE SERUM 1.11 MG/DL (0.60-1.30); GFR ESTIMATED > 60; GLUCOSE 61 MG/DL (70-105); MAGNESIUM 1.6 MG/DL (1.8-2.4); PHOSPHORUS 2.1 MG/DL (2.3-4.7); POTASSIUM 3.4 MMOL/L (3.6-5.0); SODIUM 140 MMOL/L (135-145)
[2017-10-31] MEDS ORDERED: KCL 20 MEQ TAB (K-DUR) PO SCH (06:00)
[2017-10-31] MEDS ORDERED: POTASSIUM CL 10MEQ/50ML IVPB 50 ML IV SCH (06:00)
[2017-10-31] MEDS: inSUlin (REGULAR) HUMAN 1 UNIT/0.01 ML (CHARGE PER UNIT) SC SCH ×4 (06:00→18:20)
[2017-10-31] MEDS ORDERED: MAGNESIUM 1 GM/100 ML IVPB 100 ML IV SCH (06:00)
[2017-10-31] MEDS: metroNIDAZOLE 500 MG (FLAGYL) TAB PO SCH ×3 (06:35→21:38)
[2017-10-31] MEDS: predniSONE 5 MG TAB PO SCH (06:35)
[2017-10-31] MEDS: CEFEPIME 2 GM/NS 50 ML IVPB IV SCH ×2 (06:35)
--- NOTE | 2017-10-31 07:27 | Diagnostic Imaging Report ---
INDICATION: Sepsis and hypotension. 0553 hours. Portable semiupright view of the chest is obtained with comparison made to study of one day earlier. Overall heart size and pulmonary vascularity are within normal limits. There is mild right perihilar and basilar atelectasis. There is no pneumothorax or consolidation. IMPRESSION: Right perihilar and basilar atelectasis and/or pneumonitis, which may be slightly worsened compared to previous study. Dictated by: Dictated on workstation # [id number]
[2017-10-31] MEDS: POTASSIUM CL 10MEQ/50ML IVPB 50 ML IV SCH ×2 (07:57→07:58)
[2017-10-31] MEDS: VANCOMYCIN 1,750 MG/NS 500 ML IVPB IV SCH ×2 (08:01)
[2017-10-31] MEDS: LEVETIRACETAM 500 MG (KEPPRA) TAB PO SCH ×2 (08:04→21:38)
[2017-10-31] MEDS: ATORVASTATIN 40 MG (LIPITOR) TABLET PO SCH (08:04)
[2017-10-31] MEDS: CLOPIDOGREL 75 MG (PLAVIX) TABLET PO SCH (08:04)
[2017-10-31] MEDS: LACTOBACILLUS Acidoph/Bulgar (LACTINEX/FLORANEX) TAB PO SCH ×2 (08:04→21:38)
[2017-10-31] MEDS: PANTOPRAZOLE 40 MG (PROTONIX) TAB PO SCH (08:04)
[2017-10-31] MEDS: MICONAZOLE 2% POWDER (DESENEX AF) 90 GM TOP SCH ×2 (08:09→21:39)
[2017-10-31] MEDS: MAGNESIUM 1 GM/100 ML IVPB 100 ML IV SCH ×2 (09:30→10:20)
--- NOTE | 2017-10-31 13:35 | Progress Note-Hospitalist ---
Subjective HPI/CC On Admission Date Seen by Provider: Oct 31, 2017 Time Seen by Provider: 08:00 Pt is a 62yoCM with a reported history of CVA, COPD, HTN, seizure disorder who presented for hypotension from his NH. He is unable to provide me any history other than telling me he feels bad. He believes he transferred here from [facility] and does not recall being in a NH. I called and spoke with [facility] RN at [facility]. She reports they received him on 10/25 form [facility]. She states he had a "stroke" a few months ago that left him with "bilateral weakness" and he developed a sacral pressure wound at a different [place] during his recovery from the stroke. He was discharged home from that NH and quickly was readmitted to the hospital for "wound infection" and underwent debridement at [facility] on an unknown date. He nurse also reports that he coded on 10/09 at [facility] but she is unsure the details of that event or his recovery. He has an IJ in placed and the NH is also unsure the duration of it. She reports that he is normally able to feed himself and oriented x4 but the past few days has been more drowsy and disoriented. Subjective/Events-last exam Pt is much more alert today. Reports he feels better today and was able to tell me where he was and why he was here. He denied any complaints. Objective Exam Vital Signs Vital Sign - Last 12Hours 10/29/17 23:20 Temp 97.1 Pulse 72 Resp 18 B/P (MAP) 127/72 (90) Pulse Ox 97 O2 Delivery Nasal Cannula O2 Flow Rate 2.00 Capillary Refill : Less Than 3 Seconds General Appearance: No Apparent Distress, Chronically ill Respiratory: Lungs Clear, No Respiratory Distress Cardiovascular: Regular Rate, Rhythm, No Murmur Gastrointestinal: Normal Bowel Sounds, Non Tender, Soft Extremity: Non Tender, No Calf Tenderness Neurologic/Psychiatric: Alert, Oriented x3 Results/Procedures Lab Laboratory Tests 10/31/17 05:00 Assessment/Plan Assessment and Plan Assess & Plan/Chief Complaint Severe Sepsis Diagnosis/Problems Diagnosis/Problems (1) Severe sepsis Status: Resolved Assessment & Plan: WBC improving Infection source ?UTI or bloodstream from prolonged IJ or sacral wound or possible infiltrate on CXR Urine culture sent, Blood cultures sent Awaiting results MAP has remained above 65 Cont on Vanc, Cefepime, and Flagyl IJ cath culture sent (2) Acute kidney injury superimposed on chronic kidney disease Status: Resolved Assessment & Plan: Likely due to sepsis Continue IVF History of acute renal failure believed to have required temp HD Monitor UOP (currently adequate) (3) COPD (chronic obstructive pulmonary disease) Status: Chronic Assessment & Plan: MAT protocol Pulm consulted, appreciate recs Qualifiers: Qualified Codes: J44.9 - Chronic obstructive pulmonary disease, unspecified (4) Normocytic anemia Status: Chronic Assessment & Plan: Mild, trend (5) Hypokalemia Assessment & Plan: On protocol (6) Hypomagnesemia Assessment & Plan: On protocol (7) Essential (primary) hypertension Assessment & Plan: Hold antihypertensives for hypotension (8) Seizure disorder Assessment & Plan: Continue CONTRERAS Forman MD Oct 31, 2017 13:35
[2017-10-31] MEDS: rOPINIRole 1 MG (REQUIP) TABLET PO SCH (21:38)
[2017-11-01] VITALS: BP 167/78
[2017-11-01] MEDS: inSUlin (REGULAR) HUMAN 1 UNIT/0.01 ML (CHARGE PER UNIT) SC SCH ×4 (00:06→17:32)
[2017-11-01] MEDS: NS IV 1000 ML 1,000 ML IV SCH (00:18)
[2017-11-01] MEDS: DAKIN'S 1/4 STRENGTH (0.125%) 473 ML BTL TOP SCH ×2 (00:25→16:00)
[2017-11-01] MEDS: HYDROcodone/APAP 5 MG/325 MG (LORTAB) TAB PO PRN ×4 (03:38→18:53)
[2017-11-01] MEDS: metroNIDAZOLE 500 MG (FLAGYL) TAB PO SCH ×3 (03:45→20:30)
[2017-11-01 04:00] VITALS: BP 160/81
[2017-11-01] MEDS: predniSONE 5 MG TAB PO SCH (06:00)
[2017-11-01] MEDS: CEFEPIME 2 GM/NS 50 ML IVPB IV SCH ×2 (06:00)
[2017-11-01 06:28] LABS: BASOPHILS # (AUTO) 0.1 10^3/uL (0.0-0.1); BASOPHILS % (AUTO) 1 % (0-10); EOSINOPHILS # (AUTO) 0.1 10^3/uL (0.0-0.3); EOSINOPHILS % (AUTO) 1 % (0-10); LYMPHOCYTES # (AUTO) 2.2 X 10^3 (1.0-4.0); LYMPHOCYTES % (AUTO) 19 % (12-44); MEAN CORPUSCULAR HEMOGLOBIN 31 PG (25-34); MEAN CORPUSCULAR HGB CONC 32 G/DL (32-36); MEAN CORPUSCULAR VOLUME 95 FL (80-99); MEAN PLATELET VOLUME 9.9 FL (7.4-10.4); MONOCYTES % (AUTO) 8 % (0-12); NEUTROPHILS # (AUTO) 8.2 X 10^3 (1.8-7.8); NEUTROPHILS % (AUTO) 71 % (42-75); PLATELET COUNT 163 10^3/uL (130-400); RED BLOOD COUNT 3.05 10^6/uL (4.35-5.85); RED CELL DISTRIBUTION WIDTH 17.1 % (10.0-14.5); WHITE BLOOD COUNT 11.6 10^3/uL (4.3-11.0)
[2017-11-01 07:00] LABS: ALANINE AMINOTRANSFERASE 22 U/L (0-55); ALBUMIN 2.4 GM/DL (3.2-4.5); ANION GAP 9 MMOL/L (5-14); ASPARTATE AMINO TRANSFERASE 16 U/L (5-34); BILIRUBIN,TOTAL 0.4 MG/DL (0.1-1.0); BLOOD UREA NITROGEN 23 MG/DL (7-18); BUN/CREATININE RATIO 24; CALCIUM 7.6 MG/DL (8.5-10.1); CARBON DIOXIDE 21 MMOL/L (21-32); CHLORIDE 111 MMOL/L (98-107); CREATININE SERUM 0.96 MG/DL (0.60-1.30); GFR ESTIMATED > 60; GLUCOSE 92 MG/DL (70-105); MAGNESIUM 1.8 MG/DL (1.8-2.4); POTASSIUM 3.4 MMOL/L (3.6-5.0); SODIUM 141 MMOL/L (135-145); TOTAL PROTEIN 4.6 GM/DL (6.4-8.2)
[2017-11-01 08:00] VITALS: BP 178/85
[2017-11-01] MEDS ORDERED: TROUGH ORDER-PHARMACY XX NR (08:00)
--- NOTE | 2017-11-01 08:54 | Progress Note-Hospitalist ---
Subjective HPI/CC On Admission Date Seen by Provider: Nov 01, 2017 Time Seen by Provider: 08:40 Pt is a 62yoCM with a reported history of CVA, COPD, HTN, seizure disorder who presented for hypotension from his NH. He is unable to provide me any history other than telling me he feels bad. He believes he transferred here from [facility] and does not recall being in a NH. I called and spoke with [facility] RN at [facility]. She reports they received him on 10/25 form [facility]. She states he had a "stroke" a few months ago that left him with "bilateral weakness" and he developed a sacral pressure wound at a different [place] during his recovery from the stroke. He was discharged home from that NH and quickly was readmitted to the hospital for "wound infection" and underwent debridement at [facility] on an unknown date. He nurse also reports that he coded on 10/09 at [facility] but she is unsure the details of that event or his recovery. He has an IJ in placed and the NH is also unsure the duration of it. She reports that he is normally able to feed himself and oriented x4 but the past few days has been more drowsy and disoriented. Subjective/Events-last exam Reports had a bad night. Did not sleep well and legs are hurting. Did eat well last night. Objective Exam Vital Signs Vital Sign - Last 12Hours 10/29/17 23:20 Temp 97.1 Pulse 72 Resp 18 B/P (MAP) 127/72 (90) Pulse Ox 97 O2 Delivery Nasal Cannula O2 Flow Rate 2.00 Capillary Refill : Less Than 3 Seconds General Appearance: No Apparent Distress, Chronically ill Respiratory: Lungs Clear, No Respiratory Distress Cardiovascular: Regular Rate, Rhythm, No Murmur Gastrointestinal: Normal Bowel Sounds, Non Tender, Soft Neurologic/Psychiatric: Alert, Oriented x3 Results/Procedures Lab Laboratory Tests 11/01/17 05:30 Assessment/Plan Assessment and Plan Assess & Plan/Chief Complaint Severe Sepsis Diagnosis/Problems Diagnosis/Problems (1) Severe sepsis Status: Resolved Assessment & Plan: WBC improving still Infection source ?UTI or bloodstream from prolonged IJ or sacral wound or possible infiltrate on CXR Urine culture NGTD, Blood cultures NGTD Cont on Vanc, Cefepime, and Flagyl (2) Acute kidney injury superimposed on chronic kidney disease Status: Resolved Assessment & Plan: Likely due to sepsis History of acute renal failure believed to have required temp HD Vanc dosing per Pharm (3) COPD (chronic obstructive pulmonary disease) Status: Chronic Assessment & Plan: MAT protocol Pulm consulted, appreciate recs Titrate O2 to keep >89 Qualifiers: Qualified Codes: J44.9 - Chronic obstructive pulmonary disease, unspecified (4) Normocytic anemia Status: Chronic Assessment & Plan: Mild, trend Likely due to chronic disease Check iron studies if low will replace with iron (5) Insulin dependent diabetes mellitus Assessment & Plan: BS normal without insulin currently Review of records reveals 37lb weight loss likely resulting in decreased insulin needs Will check ACHS accu cheks SSI only right now as fasting BS 92 (6) Hypokalemia Assessment & Plan: Will replace (7) Hypomagnesemia Status: Resolved Assessment & Plan: resolved (8) Essential (primary) hypertension Assessment & Plan: BP now elevated Will slowly restart antihypertensives incrementally (9) Seizure disorder Assessment & Plan: Continue CONTRERAS Fomran MD Nov 01, 2017 8:54 am
[2017-11-01] MEDS ORDERED: KCL 10 MEQ TAB (MICRO K) PO NR (09:00)
[2017-11-01] MEDS: VANCOMYCIN 1,750 MG/NS 500 ML IVPB IV SCH ×2 (09:04)
[2017-11-01] MEDS: LACTOBACILLUS Acidoph/Bulgar (LACTINEX/FLORANEX) TAB PO SCH ×2 (09:06→20:30)
[2017-11-01] MEDS: ATORVASTATIN 40 MG (LIPITOR) TABLET PO SCH (09:06)
[2017-11-01] MEDS: CLOPIDOGREL 75 MG (PLAVIX) TABLET PO SCH (09:06)
[2017-11-01] MEDS: PANTOPRAZOLE 40 MG (PROTONIX) TAB PO SCH (09:06)
[2017-11-01] MEDS: MICONAZOLE 2% POWDER (DESENEX AF) 90 GM TOP SCH ×2 (09:07→20:31)
[2017-11-01] MEDS: LEVETIRACETAM 500 MG (KEPPRA) TAB PO SCH ×2 (09:11→20:31)
[2017-11-01] MEDS: meTOprolol TARTRATE 50 MG (LOPRESSOR) TAB PO SCH ×2 (10:02→20:30)
[2017-11-01] MEDS: GABAPENTIN 100 MG (NEURONTIN) CAP PO SCH ×2 (10:02→20:30)
[2017-11-01] MEDS: ENOXAPARIN 40 MG/0.4 ML (LOVENOX) SYR SC SCH (10:03)
--- NOTE | 2017-11-01 10:54 | Physical Therapy Evaluation ---
PT Evaluation-General Medical Diagnosis Admission Date Oct 30, 2017 at 02:30 Medical Diagnosis: Severe Sepsis Onset Date: Oct 30, 2017 Therapy Diagnosis Therapy Diagnosis: debility/weakness Height/Weight Height (Feet): 5 Height (Inches): 7.00 Weight (Pounds): 236 Weight (Ounces): 7.0 Precautions Precautions/Isolations: Contact Isolation, Seizure Weight Bear Status Right Lower Extremity: Right Weight Bearing/Tolerated Left Lower Extremity: Left Weight Bearing/Tolerated Referral Physician: Tirso Reason for Referral: Evaluation/Treatment Medical History Pertinent Medical History: CAD, COPD, CVA, DM, GERD Additional Medical History seizure disorder Current History EMS from [place] due to decreased BP, stage IV sacral ulcer Reviewed History: Yes Social History Home: [place] Prior/Core FIM Prior Level of Function Functional Coffee Measure 0=Not Assessed/NA 4=Minimal Assistance 1=Total Assistance 5=Supervision or Setup 2=Maximal Assistance 6=Modified Coffee 3=Moderate Assistance 7=Complete Coffee Bed Mobility: 1 Transfers (B,C,W/C) (FIM): 1 Bindu lift transfer at [place] PT Evaluation-Current Subjective Patient is confused and incontinent. Pain Numeric Pain Scale: 0-No Pain Location: No Pain Reported Objective Patient Orientation: Confused Problem Solving: Poor Attachments: Oxygen, Barron Catheter, IV ROM/Strength ROM Lower Extremities bilateral LE WNL Strength Lower Extremities right LE 2/5 grossly left LE 1/5 grossly Integumentary/Posture Integumentary multiple decubitus ulcers Bladder Incontinence: Barron Cath (barron was leaking) Neuromuscular (Tone, Coordination, Reflexes) diminished coordination due to old CVA and inactivity Sensory Vision: Unable to Assess Hearing: Functional Sensation Right Lower Extremit: Impaired Sensation Left Lower Extremity: Impaired Transfers Functional Coffee Measure 0=Not Assessed/NA 4=Minimal Assistance 1=Total Assistance 5=Supervision or Setup 2=Maximal Assistance 6=Modified Coffee 3=Moderate Assistance 7=Complete Coffee Transfers (B, C, W/C) (FIM): 1 Scootin Rollin Patient dependent assist with all mobility and repositioned to sidelying right with pillows behind back and between LE's. Sacrum is pressure free as well as the ankles Assessment/Needs 62 y.o male, dependent assist PLOF, will receive short term skilled PT to address ROM/strengthening. Nursing to Bindu patient, however, due to stage IV sacral wound this is contraindicated. Rehab Potential: Guarded PT Penitentiary Goals Drywall Professional Goals PT Penitentiary Goals Time Frame: Nov 08, 2017 Transfers (B,C,W/C) (FIM): 1 PT Plan Problem List Problem List: Activity Tolerance, Functional Strength, Balance, Transfer, Bed Mobility Treatment/Plan Treatment Plan: Continue Plan of Care Treatment Plan: Bed Mobility, Education, Functional Activity Cindy, Functional Strength, Therapeutic Exercise Treatment Duration: Nov 08, 2017 Frequency: 5 times per week Estimated Hrs Per Day: .25 hour per day Patient and/or Family Agrees t: Yes Time/GCodes Time In: 925 Time Out: 943 Total Billed Treatment Time: 18 Total Billed Treatment 1 visit EVModC 18 min ANGELA JEFF PT Nov 01, 2017 10:54
[2017-11-01 12:00] VITALS: BP 157/73
[2017-11-01] MEDS: CALCIUM CARBONATE 500 MG (TUMS) TAB.CHEW PO PRN (12:14)
--- NOTE | 2017-11-01 13:22 | Occupational Therapy Eval ---
OT Evaluation-General/PLF Medical Diagnosis Admission Date Oct 30, 2017 at 02:30 Medical Diagnosis: Severe Sepsis Onset Date: Oct 30, 2017 Therapy Diagnosis Therapy Diagnosis: impaired self care skills Height/Weight Height (Feet): 5 Height (Inches): 7.00 Weight (Pounds): 236 Weight (Ounces): 7.0 Precautions Precautions/Isolations: Contact Isolation, Seizure Safety Interventions: Reorient-PRN Referral Physician: Tirso Medical History Pertinent Medical History: CAD, COPD, CVA, DM, GERD Additional Medical History HTN, seizure disorder, chronic back pain Reviewed History: Yes Social History Home: Shelter ADL-Prior Level of Function ADL PLOF Comments Pt has been at [place]. Pt states he is normally able to feed himself and complete grooming, but has assist with other tasks. Pt states a lift has been used for transfers. Has been spending most of time in bed secondary to sacral wound. OT Current Status Subjective Pt in bed, agrees to therapy. Pt states he is tired as he did not sleep well last night. Pt states he is currently not in any pain. Mental Status/Objective Patient Orientation: Person Attachments: Rios Catheter, Oxygen Current Glasses/Contacts: Yes Hearing Aids: No Dentures/Partials: Yes (upper dentures- pt states he doesn't know where they are) Hand Dominance: Right Upper Extremity ROM Fair Upper Extremity Strength Fair ADL-Treatment ADL-Current Pt participated in UE assessment while in bed. Pt's meal tray arrives, but pt states he is not hungry right now and does not want to eat at this time. Pt states he has been requiring some assistance with meals while in hospital. Pt is in left sidelying and states he recently changed positions and comfortable so declined mobility at this time. Pt resting in bed with needs met after session. Functional [place] Measure 0=Not Assessed/NA 4=Minimal Assistance 1=Total Assistance 5=Supervision or Setup 2=Maximal Assistance 6=Modified [place] 3=Moderate Assistance 7=Complete IndependenceIRFPAI Quality Coding Scale 6 Independent with activity with or without an assistive device 5 Patient requires set up or clean up by helper. Patient completes activity by themselves 4 Supervision or touching assist (CGA). [place] provide cues , steadying assist 3 The helper provides less than half the effort to complete the activity 2 The helper provides more than half the effort to complete the activity 1 Dependent. The helper does all the effort to complete an activity 7 Patient refused to complete or attempt activity 9 The patient did not perform the activity before the current illness or injury 88 Not attempted due to Medical conditions or safety concerns Education OT Patient Education: Rehab process Teaching Recipient: Patient Teaching Methods: Discussion Response to Teaching: Reinforcement Needed OT Short Term Goals Short Term Goals 1=Demonstrate adherence to instructed precautions during ADL tasks. 2=Patient will verbalize/demonstrate understanding of assistive devices/ modifications for ADL. 3=Patient will improve strength/tolerance for activity to enable patient to perform ADL's. OT Shelter Goals Shelter Goals Time Frame: Nov 08, 2017 Eating (FIM): 5 Grooming(FIM): 5 Additional Goals: 2-Verbalize Understanding, 3-ImproveStrength/Cindy 1=Demonstrate adherence to instructed precautions during ADL tasks. 2=Patient will verbalize/demonstrate understanding of assistive devices/ modifications for ADL. 3=Patient will improve strength/tolerance for activity to enable patient to perform ADL's. OT Education/Plan Problem List/Assessment Assessment: Decreased Activ Tolerance, Decreased UE Strength, Dependent Transfers, Impaired Bed Mobility, Impaired Self-Care Skills Pt to benefit from skilled OT intervention while hospitalized to address strength and ADLs to maximize level of function and allow safe discharge plan. Discharge Recommendations Plan/Recommendations: Continue POC Treatment Plan/Plan of Care Treatment,Training & Education: Yes Patient would benefit from OT for education, treatment and training to promote independence in ADL's, mobility, safety and/or upper extremity function for ADL' s. Plan of Care: ADL Retraining, Functional Mobility, UE Funct Exercise/Act Treatment Duration: Nov 08, 2017 Frequency: 5 times per week Estimated Hrs Per Day: .25 hour per day Rehab Potential: Guarded Time/GCodes Start Time: 12:54 Stop Time: 13:09 Total Time Billed (hr/min): 15 Billed Treatment Time 1 visit, TIFFANY(15minutes) EULA FRENCH OT Nov 01, 2017 13:22
[2017-11-01 16:50] VITALS: BP 143/68
[2017-11-01 20:00] VITALS: BP 138/73
[2017-11-01] MEDS: rOPINIRole 1 MG (REQUIP) TABLET PO SCH (20:30)
[2017-11-02] VITALS: BP 134/73
[2017-11-02] MEDS: inSUlin (REGULAR) HUMAN 1 UNIT/0.01 ML (CHARGE PER UNIT) SC SCH ×5 (00:15→21:09)
[2017-11-02] MEDS: HYDROcodone/APAP 5 MG/325 MG (LORTAB) TAB PO PRN ×2 (03:17→08:24)
[2017-11-02] MEDS: CALCIUM CARBONATE 500 MG (TUMS) TAB.CHEW PO PRN (03:17)
[2017-11-02 04:00] VITALS: BP 164/78
[2017-11-02] MEDS: metroNIDAZOLE 500 MG (FLAGYL) TAB PO SCH ×3 (04:37→21:15)
[2017-11-02] MEDS: predniSONE 5 MG TAB PO SCH (06:14)
[2017-11-02] MEDS: CEFEPIME 2 GM/NS 50 ML IVPB IV SCH ×2 (06:14)
[2017-11-02 06:22] LABS: BASOPHILS # (AUTO) 0.1 10^3/uL (0.0-0.1); BASOPHILS % (AUTO) 1 % (0-10); EOSINOPHILS # (AUTO) 0.1 10^3/uL (0.0-0.3); EOSINOPHILS % (AUTO) 1 % (0-10); LYMPHOCYTES # (AUTO) 2.3 X 10^3 (1.0-4.0); LYMPHOCYTES % (AUTO) 23 % (12-44); MEAN CORPUSCULAR HEMOGLOBIN 30 PG (25-34); MEAN CORPUSCULAR HGB CONC 32 G/DL (32-36); MEAN CORPUSCULAR VOLUME 96 FL (80-99); MEAN PLATELET VOLUME 9.6 FL (7.4-10.4); MONOCYTES # (AUTO) 0.9 X 10^3 (0.0-1.0); MONOCYTES % (AUTO) 9 % (0-12); NEUTROPHILS # (AUTO) 6.7 X 10^3 (1.8-7.8); NEUTROPHILS % (AUTO) 66 % (42-75); PLATELET COUNT 137 10^3/uL (130-400); RED BLOOD COUNT 3.15 10^6/uL (4.35-5.85); RED CELL DISTRIBUTION WIDTH 17.1 % (10.0-14.5)
[2017-11-02 07:12] LABS: ALANINE AMINOTRANSFERASE 18 U/L (0-55); ALBUMIN 2.4 GM/DL (3.2-4.5); ANION GAP 9 MMOL/L (5-14); ASPARTATE AMINO TRANSFERASE 16 U/L (5-34); BILIRUBIN,TOTAL 0.4 MG/DL (0.1-1.0); BLOOD UREA NITROGEN 22 MG/DL (7-18); BUN/CREATININE RATIO 22; CALCIUM 8.1 MG/DL (8.5-10.1); CARBON DIOXIDE 22 MMOL/L (21-32); CHLORIDE 112 MMOL/L (98-107); CREATININE SERUM 0.99 MG/DL (0.60-1.30); GFR ESTIMATED > 60; GLUCOSE 86 MG/DL (70-105); MAGNESIUM 1.5 MG/DL (1.8-2.4); POTASSIUM 3.5 MMOL/L (3.6-5.0); SODIUM 143 MMOL/L (135-145); TOTAL PROTEIN 4.8 GM/DL (6.4-8.2)
[2017-11-02] MEDS ORDERED: TROUGH ORDER-PHARMACY XX NR (08:00)
--- NOTE | 2017-11-02 08:07 | Progress Note-Hospitalist ---
Subjective HPI/CC On Admission Date Seen by Provider: Nov 02, 2017 Time Seen by Provider: 08:01 Pt is a 62yoCM with a reported history of CVA, COPD, HTN, seizure disorder who presented for hypotension from his NH. He is unable to provide me any history other than telling me he feels bad. He believes he transferred here from [facility] and does not recall being in a NH. I called and spoke with his RN at [facility]. She reports they received him on 10/25 form [facility]. She states he had a "stroke" a few months ago that left him with "bilateral weakness" and he developed a sacral pressure wound at a different [facility] during his recovery from the stroke. He was discharged home from that NH and quickly was readmitted to the hospital for "wound infection" and underwent debridement at [facility] on an unknown date. He nurse also reports that he coded on 10/09 at [facility] but she is unsure the details of that event or his recovery. He has an IJ in placed and the NH is also unsure the duration of it. She reports that he is normally able to feed himself and oriented x4 but the past few days has been more drowsy and disoriented. Subjective/Events-last exam Pt reports doing better today. No complaints. Stomach feeling better since starting tums. No other concerns. Objective Exam Vital Signs Vital Sign - Last 12Hours 10/29/17 23:20 Temp 97.1 Pulse 72 Resp 18 B/P (MAP) 127/72 (90) Pulse Ox 97 O2 Delivery Nasal Cannula O2 Flow Rate 2.00 Capillary Refill : Less Than 3 Seconds General Appearance: No Apparent Distress, Chronically ill Respiratory: Lungs Clear, No Respiratory Distress, Other (on oxygen) Cardiovascular: Regular Rate, Rhythm, No Murmur Gastrointestinal: Normal Bowel Sounds, Non Tender, Soft Extremity: Non Tender, No Calf Tenderness Neurologic/Psychiatric: Alert, Oriented x3 Results/Procedures Lab Laboratory Tests 11/02/17 06:07 Assessment/Plan Assessment and Plan Assess & Plan/Chief Complaint Severe Sepsis Diagnosis/Problems Diagnosis/Problems (1) Severe sepsis Status: Resolved Assessment & Plan: WBC resolved Infection source ?UTI or bloodstream from prolonged IJ or sacral wound or possible infiltrate on CXR Blood cultures NGTD- Urine growing ric Will add Diflucan Cont on Vanc, Cefepime, and Flagyl (2) Acute kidney injury superimposed on chronic kidney disease Status: Resolved Assessment & Plan: Likely due to sepsis History of acute renal failure Received temp HD last month Vanc dosing per Pharm (3) COPD (chronic obstructive pulmonary disease) Status: Chronic Assessment & Plan: MAT protocol Pulm consulted, appreciate recs Titrate O2 to keep >89 Qualifiers: Qualified Codes: J44.9 - Chronic obstructive pulmonary disease, unspecified (4) Normocytic anemia Status: Chronic Assessment & Plan: Mild, trend Likely due to chronic disease Check iron studies- pending if low will replace with iron (5) Insulin dependent diabetes mellitus Assessment & Plan: BS normal without insulin currently Review of records reveals 37lb weight loss likely resulting in decreased insulin needs Will check ACHS accu cheks SSI only right now as fasting BS 92 (6) Hypokalemia Assessment & Plan: Will replace (7) Hypomagnesemia Status: Acute Assessment & Plan: will replace (8) Essential (primary) hypertension Assessment & Plan: BP well controlled yesterday -trend (9) Seizure disorder Assessment & Plan: Continue CONTRERAS Forman MD Nov 02, 2017 08:07
[2017-11-02] MEDS ORDERED: KCL 10 MEQ TAB (MICRO K) PO ONE (08:15)
[2017-11-02] MEDS: fluCOnazole (DIFLUCAN) 100 MG TAB PO SCH (08:23)
[2017-11-02] MEDS: ATORVASTATIN 40 MG (LIPITOR) TABLET PO SCH (08:23)
[2017-11-02] MEDS: MAGNESIUM 1 GM/100 ML IVPB 100 ML IV SCH ×2 (08:23→09:18)
[2017-11-02] MEDS: CLOPIDOGREL 75 MG (PLAVIX) TABLET PO SCH (08:24)
[2017-11-02] MEDS: LACTOBACILLUS Acidoph/Bulgar (LACTINEX/FLORANEX) TAB PO SCH ×2 (08:24→21:14)
[2017-11-02] MEDS: meTOprolol TARTRATE 50 MG (LOPRESSOR) TAB PO SCH ×2 (08:24→21:14)
[2017-11-02] MEDS: ENOXAPARIN 40 MG/0.4 ML (LOVENOX) SYR SC SCH (08:24)
[2017-11-02] MEDS: GABAPENTIN 100 MG (NEURONTIN) CAP PO SCH ×2 (08:24→21:14)
[2017-11-02] MEDS: MICONAZOLE 2% POWDER (DESENEX AF) 90 GM TOP SCH ×2 (08:24→21:15)
[2017-11-02] MEDS: LEVETIRACETAM 500 MG (KEPPRA) TAB PO SCH ×2 (08:24→21:14)
[2017-11-02] MEDS: PANTOPRAZOLE 40 MG (PROTONIX) TAB PO SCH (08:24)
[2017-11-02] MEDS: DAKIN'S 1/4 STRENGTH (0.125%) 473 ML BTL TOP SCH (08:25)
[2017-11-02 08:46] VITALS: BP 138/78
[2017-11-02] MEDS: VANCOMYCIN 1250 MG/NS 250 ML IVPB IV SCH ×2 (10:37)
[2017-11-02 12:00] VITALS: BP 137/73
[2017-11-02 16:28] VITALS: BP 160/74
[2017-11-02] MEDS: rOPINIRole 1 MG (REQUIP) TABLET PO SCH (21:15)
[2017-11-03] VITALS: BP 154/79
[2017-11-03] MEDS: metroNIDAZOLE 500 MG (FLAGYL) TAB PO SCH ×3 (04:23→21:03)
[2017-11-03] MEDS: HYDROcodone/APAP 5 MG/325 MG (LORTAB) TAB PO PRN ×2 (05:21→16:11)
[2017-11-03] MEDS: inSUlin (REGULAR) HUMAN 1 UNIT/0.01 ML (CHARGE PER UNIT) SC SCH ×4 (05:21→21:04)
[2017-11-03 05:41] LABS: BASOPHILS # (AUTO) 0.1 10^3/uL (0.0-0.1); BASOPHILS % (AUTO) 1 % (0-10); EOSINOPHILS # (AUTO) 0.1 10^3/uL (0.0-0.3); EOSINOPHILS % (AUTO) 2 % (0-10); LYMPHOCYTES # (AUTO) 2.5 X 10^3 (1.0-4.0); LYMPHOCYTES % (AUTO) 26 % (12-44); MEAN CORPUSCULAR HEMOGLOBIN 30 PG (25-34); MEAN CORPUSCULAR HGB CONC 32 G/DL (32-36); MEAN CORPUSCULAR VOLUME 94 FL (80-99); MEAN PLATELET VOLUME 10.1 FL (7.4-10.4); MONOCYTES % (AUTO) 11 % (0-12); NEUTROPHILS # (AUTO) 5.7 X 10^3 (1.8-7.8); NEUTROPHILS % (AUTO) 60 % (42-75); PLATELET COUNT 115 10^3/uL (130-400); RED BLOOD COUNT 3.21 10^6/uL (4.35-5.85); RED CELL DISTRIBUTION WIDTH 16.5 % (10.0-14.5); WHITE BLOOD COUNT 9.4 10^3/uL (4.3-11.0)
[2017-11-03 05:58] LABS: ALANINE AMINOTRANSFERASE 16 U/L (0-55); ALBUMIN 2.5 GM/DL (3.2-4.5); ANION GAP 10 MMOL/L (5-14); ASPARTATE AMINO TRANSFERASE 14 U/L (5-34); BILIRUBIN,TOTAL 0.4 MG/DL (0.1-1.0); BLOOD UREA NITROGEN 20 MG/DL (7-18); BUN/CREATININE RATIO 21; CALCIUM 8.1 MG/DL (8.5-10.1); CARBON DIOXIDE 22 MMOL/L (21-32); CHLORIDE 110 MMOL/L (98-107); CREATININE SERUM 0.97 MG/DL (0.60-1.30); GFR ESTIMATED > 60; GLUCOSE 88 MG/DL (70-105); MAGNESIUM 1.7 MG/DL (1.8-2.4); POTASSIUM 3.5 MMOL/L (3.6-5.0); SODIUM 142 MMOL/L (135-145); TOTAL PROTEIN 4.6 GM/DL (6.4-8.2)
[2017-11-03] MEDS: predniSONE 5 MG TAB PO SCH (06:27)
[2017-11-03] MEDS: CEFEPIME 2 GM/NS 50 ML IVPB IV SCH ×2 (06:27)
[2017-11-03 08:00] VITALS: BP 163/82
[2017-11-03] MEDS: meTOprolol TARTRATE 50 MG (LOPRESSOR) TAB PO SCH ×2 (09:48→21:03)
[2017-11-03] MEDS: ATORVASTATIN 40 MG (LIPITOR) TABLET PO SCH (09:48)
[2017-11-03] MEDS: LACTOBACILLUS Acidoph/Bulgar (LACTINEX/FLORANEX) TAB PO SCH ×2 (09:49→21:03)
[2017-11-03] MEDS: CLOPIDOGREL 75 MG (PLAVIX) TABLET PO SCH (09:49)
[2017-11-03] MEDS: fluCOnazole (DIFLUCAN) 100 MG TAB PO SCH (09:49)
[2017-11-03] MEDS: GABAPENTIN 100 MG (NEURONTIN) CAP PO SCH ×2 (09:49→21:03)
[2017-11-03] MEDS: LEVETIRACETAM 500 MG (KEPPRA) TAB PO SCH ×2 (09:49→21:04)
[2017-11-03] MEDS: ENOXAPARIN 40 MG/0.4 ML (LOVENOX) SYR SC SCH (09:49)
[2017-11-03] MEDS: MICONAZOLE 2% POWDER (DESENEX AF) 90 GM TOP SCH ×2 (09:49→21:04)
[2017-11-03] MEDS: PANTOPRAZOLE 40 MG (PROTONIX) TAB PO SCH (09:49)
[2017-11-03] MEDS: CALCIUM CARBONATE 500 MG (TUMS) TAB.CHEW PO PRN (10:36)
[2017-11-03] MEDS: VANCOMYCIN 1250 MG/NS 250 ML IVPB IV SCH ×2 (10:36)
--- NOTE | 2017-11-03 11:37 | Progress Note-Hospitalist ---
Subjective HPI/CC On Admission Date Seen by Provider: Nov 03, 2017 Time Seen by Provider: 11:00 Pt is a 62yoCM with a reported history of CVA, COPD, HTN, seizure disorder who presented for hypotension from his NH. He is unable to provide me any history other than telling me he feels bad. He believes he transferred here from [facility] and does not recall being in a NH. I called and spoke with his RN at [facility]. She reports they received him on 10/25 form [facility]. She states he had a "stroke" a few months ago that left him with "bilateral weakness" and he developed a [facility] during his recovery from the stroke. He was [facility] from [facility] and quickly was readmitted to the hospital for "wound infection" and underwent debridement at [facility] on an unknown date. He nurse also reports that he coded on 10/09 at [facility] but she is unsure the details of that event or his recovery. He has an IJ in placed and the NH is also unsure the duration of it. She reports that he is normally able to feed himself and oriented x4 but the past few days has been more drowsy and disoriented. Subjective/Events-last exam patient has no complaints. he is anxious to go back to [facility] where he can continue his rehabilitation Review of Systems Neurological: Weakness Objective Exam Vital Signs Vital Sign - Last 12Hours 10/29/17 23:20 Temp 97.1 Pulse 72 Resp 18 B/P (MAP) 127/72 (90) Pulse Ox 97 O2 Delivery Nasal Cannula O2 Flow Rate 2.00 Capillary Refill : Less Than 3 SecondsLess Than 3 Seconds General Appearance: No Apparent Distress, WD/WN Neck: Limited Range of Motion Respiratory: Lungs Clear, Normal Breath Sounds, No Accessory Muscle Use, No Respiratory Distress Cardiovascular: Regular Rate, Rhythm, No Gallop Gastrointestinal: Soft Extremity: Pedal Edema Neurologic/Psychiatric: Alert, Depressed Affect, Motor Weakness Skin: Pallor Results/Procedures Lab Laboratory Tests 11/03/17 05:10 Assessment/Plan Assessment and Plan Assess & Plan/Chief Complaint (1) Severe sepsis Status: Resolved Assessment & Plan: WBC resolved Infection source ?UTI or bloodstream from prolonged IJ or sacral wound or possible infiltrate on CXR Blood cultures NGTD- Urine growing ric Will add Diflucan Cont on Vanc, Cefepime, and Flagyl (2) Acute kidney injury superimposed on chronic kidney disease Status: Resolved Assessment & Plan: Likely due to sepsis History of acute renal failure Received temp HD last month Vanc dosing per Pharm (3) COPD (chronic obstructive pulmonary disease) Status: Chronic Assessment & Plan: MAT protocol Pulm consulted, appreciate recs Titrate O2 to keep >89 Qualifiers: Qualified Codes: J44.9 - Chronic obstructive pulmonary disease, unspecified (4) Normocytic anemia Status: Chronic Assessment & Plan: Mild, trend Likely due to chronic disease Check iron studies- pending if low will replace with iron (5) Insulin dependent diabetes mellitus Assessment & Plan: BS normal without insulin currently Review of records reveals 37lb weight loss likely resulting in decreased insulin needs Will check ACHS accu cheks SSI only right now as fasting BS 92 (6) Hypokalemia Assessment & Plan: Will replace-Gerard with 3.5 (7) Hypomagnesemia Status: Acute Assessment & Plan: will replace (8) Essential (primary) hypertension Assessment & Plan: BP well controlled yesterday -trend (9) Seizure disorder Assessment & Plan: Continue Keppra 10. thrombocytopenia with a drop in his platelets 215 will monitor DERRICK RODRIGUEZ MD Nov 03, 2017 11:37
[2017-11-03 15:51] VITALS: BP 153/71
[2017-11-03] MEDS: rOPINIRole 1 MG (REQUIP) TABLET PO SCH (21:03)
[2017-11-04] VITALS: BP 157/74
[2017-11-04] MEDS: HYDROcodone/APAP 5 MG/325 MG (LORTAB) TAB PO PRN ×4 (00:22→23:52)
[2017-11-04] MEDS: metroNIDAZOLE 500 MG (FLAGYL) TAB PO SCH ×4 (04:43→22:29)
[2017-11-04] MEDS: CEFEPIME 2 GM/NS 50 ML IVPB IV SCH ×2 (06:16)
[2017-11-04] MEDS: predniSONE 5 MG TAB PO SCH (06:16)
[2017-11-04] MEDS: inSUlin (REGULAR) HUMAN 1 UNIT/0.01 ML (CHARGE PER UNIT) SC SCH ×4 (06:16→21:00)
[2017-11-04 06:30] LABS: BASOPHILS # (AUTO) 0.1 10^3/uL (0.0-0.1); BASOPHILS % (AUTO) 1 % (0-10); EOSINOPHILS # (AUTO) 0.2 10^3/uL (0.0-0.3); EOSINOPHILS % (AUTO) 2 % (0-10); LYMPHOCYTES # (AUTO) 2.7 X 10^3 (1.0-4.0); LYMPHOCYTES % (AUTO) 26 % (12-44); MEAN CORPUSCULAR HEMOGLOBIN 30 PG (25-34); MEAN CORPUSCULAR HGB CONC 32 G/DL (32-36); MEAN CORPUSCULAR VOLUME 93 FL (80-99); MONOCYTES # (AUTO) 1.2 X 10^3 (0.0-1.0); MONOCYTES % (AUTO) 11 % (0-12); NEUTROPHILS # (AUTO) 6.2 X 10^3 (1.8-7.8); NEUTROPHILS % (AUTO) 60 % (42-75); PLATELET COUNT 101 10^3/uL (130-400); RED BLOOD COUNT 3.28 10^6/uL (4.35-5.85); RED CELL DISTRIBUTION WIDTH 16.5 % (10.0-14.5); WHITE BLOOD COUNT 10.3 10^3/uL (4.3-11.0)
[2017-11-04 06:44] LABS: ALANINE AMINOTRANSFERASE 14 U/L (0-55); ALBUMIN 2.5 GM/DL (3.2-4.5); ANION GAP 10 MMOL/L (5-14); ASPARTATE AMINO TRANSFERASE 13 U/L (5-34); BILIRUBIN,TOTAL 0.4 MG/DL (0.1-1.0); BLOOD UREA NITROGEN 17 MG/DL (7-18); BUN/CREATININE RATIO 17; CALCIUM 8.2 MG/DL (8.5-10.1); CARBON DIOXIDE 22 MMOL/L (21-32); CHLORIDE 111 MMOL/L (98-107); CREATININE SERUM 1.03 MG/DL (0.60-1.30); GFR ESTIMATED > 60; GLUCOSE 89 MG/DL (70-105); MAGNESIUM 1.3 MG/DL (1.8-2.4); POTASSIUM 3.1 MMOL/L (3.6-5.0); SODIUM 143 MMOL/L (135-145); TOTAL PROTEIN 4.7 GM/DL (6.4-8.2)
[2017-11-04 06:56] LABS: ERYTHROCYTE SEDIMENTATION RATE 36 MM/HR (0-30)
[2017-11-04 08:00] VITALS: BP 170/80
[2017-11-04] MEDS ORDERED: TROUGH ORDER-PHARMACY XX NR (09:00)
[2017-11-04] MEDS: LACTOBACILLUS Acidoph/Bulgar (LACTINEX/FLORANEX) TAB PO SCH ×2 (09:19→22:29)
[2017-11-04] MEDS: CLOPIDOGREL 75 MG (PLAVIX) TABLET PO SCH (09:19)
[2017-11-04] MEDS: ENOXAPARIN 40 MG/0.4 ML (LOVENOX) SYR SC SCH (09:19)
[2017-11-04] MEDS: ATORVASTATIN 40 MG (LIPITOR) TABLET PO SCH (09:20)
[2017-11-04] MEDS: PANTOPRAZOLE 40 MG (PROTONIX) TAB PO SCH (09:20)
[2017-11-04] MEDS: fluCOnazole (DIFLUCAN) 100 MG TAB PO SCH (09:20)
[2017-11-04] MEDS: GABAPENTIN 100 MG (NEURONTIN) CAP PO SCH ×2 (09:20→22:30)
[2017-11-04] MEDS: LEVETIRACETAM 500 MG (KEPPRA) TAB PO SCH ×2 (09:20→22:29)
[2017-11-04] MEDS: meTOprolol TARTRATE 50 MG (LOPRESSOR) TAB PO SCH ×2 (09:20→22:29)
[2017-11-04] MEDS: MICONAZOLE 2% POWDER (DESENEX AF) 90 GM TOP SCH ×2 (09:21→22:30)
--- NOTE | 2017-11-04 10:15 | Progress Note-Hospitalist ---
Subjective HPI/CC On Admission Date Seen by Provider: Nov 04, 2017 Time Seen by Provider: 08:45 Pt is a 62yoCM with a reported history of CVA, COPD, HTN, seizure disorder who presented for hypotension from his [place]. He is unable to provide me any history other than telling me he feels bad. He believes he transferred here from [facility] and does not recall being in a NH. I called and spoke with his RN at [facility]. She reports they received him on 10/25 form [facility]. She states he had a "stroke" a few months ago that left him with "bilateral weakness" and he developed a sacral pressure wound at a different [place] during his recovery from the stroke. He was discharged home from that [place] and quickly was readmitted to the hospital for "wound infection" and underwent debridement at [facility] on an unknown date. He nurse also reports that he coded on 10/09 at [facility] but she is unsure the details of that event or his recovery. He has an IJ in placed and the NH is also unsure the duration of it. She reports that he is normally able to feed himself and oriented x4 but the past few days has been more drowsy and disoriented. Subjective/Events-last exam patient has no physical complaints. He is very anxious to be transferred back to [facility] to be begin his rehabilitation tomorrow. Wants to know what time he can go. I told him the earliest would be tomorrow afternoon but probably it'll take more coordination to get medications prepared for him discharge planning completed Objective Exam Vital Signs Vital Sign - Last 12Hours 10/29/17 23:20 Temp 97.1 Pulse 72 Resp 18 B/P (MAP) 127/72 (90) Pulse Ox 97 O2 Delivery Nasal Cannula O2 Flow Rate 2.00 Capillary Refill : Less Than 3 SecondsLess Than 3 Seconds General Appearance: Chronically ill Respiratory: Chest Non Tender, Lungs Clear, Normal Breath Sounds, No Accessory Muscle Use, No Respiratory Distress Cardiovascular: Regular Rate, Rhythm, No Gallop, No Murmur Gastrointestinal: Non Tender, Soft Extremity: Pedal Edema Neurologic/Psychiatric: Depressed Affect, Motor Weakness Skin: Pallor Results/Procedures Lab Laboratory Tests 11/04/17 06:10 Assessment/Plan Assessment and Plan Assess & Plan/Chief Complaint (1) Severe sepsis Status: Resolved Assessment & Plan: WBC resolved Infection source ?UTI or bloodstream from prolonged IJ or sacral wound or possible infiltrate on CXR Blood cultures NGTD- Urine growing ric Will add Diflucan Cont on Vanc, Cefepime, and Flagyl (2) Acute kidney injury superimposed on chronic kidney disease Status: Resolved Assessment & Plan: Likely due to sepsis History of acute renal failure Received temp HD last month Vanc dosing per Pharm-last trough was high (3) COPD (chronic obstructive pulmonary disease) Status: Chronic Assessment & Plan: MAT protocol Pulm consulted, appreciate recs Titrate O2 to keep >89 Qualifiers: Qualified Codes: J44.9 - Chronic obstructive pulmonary disease, unspecified (4) Normocytic anemia Status: Chronic Assessment & Plan: Mild, trend Likely due to chronic disease Check iron studies- pending if low will replace with iron (5) Insulin dependent diabetes mellitus Assessment & Plan: BS normal without insulin currently Review of records reveals 37lb weight loss likely resulting in decreased insulin needs Will check ACHS accu cheks SSI only right now as fasting BS 92 (6) Hypokalemia Assessment & Plan: Will replace (7) Hypomagnesemia Status: Acute Assessment & Plan: will replace (8) Essential (primary) hypertension Assessment & Plan: BP well controlled yesterday -trend (9) Seizure disorder Assessment & Plan: Continue Keppra 10. thrombocytopenia with a drop in his platelets to 101 will d/c lovenox and watch 11. history of CVA and weakness-plan to discharge back to [facility] for continued rehabilitation 12. decubitus ulcer followed by wound care DERRICK RODRIGUEZ MD Nov 04, 2017 10:15
[2017-11-04] MEDS: KCL 20 MEQ TAB (K-DUR) PO SCH (11:56)
[2017-11-04 15:44] VITALS: BP 169/79
[2017-11-04] MEDS: MAGNESIUM OXIDE (MAG-OX)400 MG TAB PO SCH (18:59)
[2017-11-04] MEDS: CALCIUM CARBONATE 500 MG (TUMS) TAB.CHEW PO PRN (19:00)
[2017-11-04] MEDS: rOPINIRole 1 MG (REQUIP) TABLET PO SCH (22:29)
[2017-11-04] MEDS: DAKIN'S 1/4 STRENGTH (0.125%) 473 ML BTL TOP SCH (22:47)
[2017-11-04 23:57] VITALS: BP 144/82
[2017-11-05] MEDS: CALCIUM CARBONATE 500 MG (TUMS) TAB.CHEW PO PRN (02:46)
[2017-11-05] MEDS: CEFEPIME 2 GM/NS 50 ML IVPB IV SCH ×2 (06:41)
[2017-11-05] MEDS: predniSONE 5 MG TAB PO SCH (06:41)
[2017-11-05] MEDS: KCL 20 MEQ TAB (K-DUR) PO SCH (06:41)
[2017-11-05 06:56] LABS: BASOPHILS # (AUTO) 0.1 10^3/uL (0.0-0.1); BASOPHILS % (AUTO) 1 % (0-10); EOSINOPHILS # (AUTO) 0.1 10^3/uL (0.0-0.3); EOSINOPHILS % (AUTO) 1 % (0-10); LYMPHOCYTES # (AUTO) 3.1 X 10^3 (1.0-4.0); LYMPHOCYTES % (AUTO) 28 % (12-44); MEAN CORPUSCULAR HEMOGLOBIN 30 PG (25-34); MEAN CORPUSCULAR HGB CONC 32 G/DL (32-36); MEAN CORPUSCULAR VOLUME 94 FL (80-99); MEAN PLATELET VOLUME 10.1 FL (7.4-10.4); MONOCYTES # (AUTO) 1.2 X 10^3 (0.0-1.0); MONOCYTES % (AUTO) 11 % (0-12); NEUTROPHILS # (AUTO) 6.5 X 10^3 (1.8-7.8); NEUTROPHILS % (AUTO) 59 % (42-75); PLATELET COUNT 85 10^3/uL (130-400); RED BLOOD COUNT 3.22 10^6/uL (4.35-5.85); RED CELL DISTRIBUTION WIDTH 16.4 % (10.0-14.5)
[2017-11-05 07:16] LABS: ALANINE AMINOTRANSFERASE 13 U/L (0-55); ALBUMIN 2.5 GM/DL (3.2-4.5); ANION GAP 10 MMOL/L (5-14); ASPARTATE AMINO TRANSFERASE 13 U/L (5-34); BILIRUBIN,TOTAL 0.4 MG/DL (0.1-1.0); BLOOD UREA NITROGEN 14 MG/DL (7-18); BUN/CREATININE RATIO 14; CARBON DIOXIDE 24 MMOL/L (21-32); CHLORIDE 111 MMOL/L (98-107); GFR ESTIMATED > 60; GLUCOSE 84 MG/DL (70-105); MAGNESIUM 1.3 MG/DL (1.8-2.4); POTASSIUM 3.3 MMOL/L (3.6-5.0); SODIUM 145 MMOL/L (135-145); TOTAL PROTEIN 4.5 GM/DL (6.4-8.2)
[2017-11-05 08:00] VITALS: BP 165/79
[2017-11-05] MEDS: inSUlin (REGULAR) HUMAN 1 UNIT/0.01 ML (CHARGE PER UNIT) SC SCH ×2 (08:06→11:16)
[2017-11-05] MEDS: fluCOnazole (DIFLUCAN) 100 MG TAB PO SCH (08:45)
[2017-11-05] MEDS: CLOPIDOGREL 75 MG (PLAVIX) TABLET PO SCH (08:45)
[2017-11-05] MEDS: meTOprolol TARTRATE 50 MG (LOPRESSOR) TAB PO SCH (08:45)
[2017-11-05] MEDS: ATORVASTATIN 40 MG (LIPITOR) TABLET PO SCH (08:45)
[2017-11-05] MEDS: GABAPENTIN 100 MG (NEURONTIN) CAP PO SCH (08:45)
[2017-11-05] MEDS: MAGNESIUM OXIDE (MAG-OX)400 MG TAB PO SCH (08:45)
[2017-11-05] MEDS: PANTOPRAZOLE 40 MG (PROTONIX) TAB PO SCH (08:45)
[2017-11-05] MEDS: LACTOBACILLUS Acidoph/Bulgar (LACTINEX/FLORANEX) TAB PO SCH (08:45)
[2017-11-05] MEDS: MICONAZOLE 2% POWDER (DESENEX AF) 90 GM TOP SCH (08:46)
[2017-11-05] MEDS: LEVETIRACETAM 500 MG (KEPPRA) TAB PO SCH (08:52)
[2017-11-05] MEDS ORDERED: VANCOMYCIN 1500 MG/NS 500 ML IVPB IV SCH ×2 (09:00)
--- NOTE | 2017-11-05 10:20 | Physical Therapy Daily Note ---
PT Daily Note-Current Subjective Pt laying R side lying upon arrival. Pt reports he thinks that he is going to SNF today but isn't sure when. Pt agrees to short PT session. Pain Numeric Pain Scale: 10-Worst Possible Pain Location Body Site: Sacrum Pain Description: Pressure, Sharp Mental Status Patient Orientation: Person, Place, Time, Situation Attachments: Oxygen, Rios Catheter, IV Transfers Functional Piute Measure 0=Not Assessed/NA 4=Minimal Assistance 1=Total Assistance 5=Supervision or Setup 2=Maximal Assistance 6=Modified Pi[place] 3=Moderate Assistance 7=Complete IndependenceIRFPAI Quality Coding Scale 6 Independent with activity with or without an assistive device 5 Patient requires set up or clean up by helper. Patient completes activity by themselves 4 Supervision or touching assist (CGA). Stow provide cues , steadying assist 3 The helper provides less than half the effort to complete the activity 2 The helper provides more than half the effort to complete the activity 1 Dependent. The helper does all the effort to complete an activity 7 Patient refused to complete or attempt activity 9 The patient did not perform the activity before the current illness or injury 88 Not attempted due to Medical conditions or safety concerns Scootin Rollin Supine to/from Sit: 1 Weight Bearing Right Lower Extremity: Right Weight Bearing/Tolerated Left Lower Extremity: Left Weight Bearing/Tolerated Exercises Seated Therapy Exercises: Long arc quads, Kicking activity Seated Reps: 20 Treatments Pt has difficulty transferring from side lying to EOB, SHOE PULLER assists at Max A. Pt only able to tolerate sitting EOB for short time in which pt completes Seated Ex. Pt requests to lay down again. SHOE PULLER assists to R side lying since Aide informed SHOE PULLER pt had just been positioned shortly before PT tx. Pt is positioned with pillows and all needs met at end of tx. Assessment Current Status: Fair Progress Pt reports that his legs are too weak to stand at this time. "They won't hold me!" Pt is very weak at this time even with his transfers. PT Detention Goals Gluing Machine Offbearer Goals PT Gluing Machine Offbearer Goals Time Frame: Nov 08, 2017 Transfers (B,C,W/C) (FIM): 1 PT Plan Problem List Problem List: Activity Tolerance, Functional Strength, Safety, Balance, Gait, Transfer, Bed Mobility Treatment/Plan Treatment Plan: Continue Plan of Care Treatment Plan: Bed Mobility, Education, Functional Activity Cindy, Functional Strength, Therapeutic Exercise Treatment Duration: Nov 08, 2017 Frequency: 5 times per week Estimated Hrs Per Day: .25 hour per day Patient and/or Family Agrees t: Yes Safety Risks/Education Patient Education: Transfer Techniques, Correct Positioning, Disease Process, Safety Issues Teaching Recipient: Patient Teaching Methods: Discussion Response to Teaching: Verbalize Understanding Time/GCodes Time In: 900 Time Out: 930 Total Billed Treatment Time: 30 Total Billed Treatment 1, EX x2 (30m) NAYELY ODOM SHOE PULLER Nov 05, 2017 10:20
[2017-11-05] MEDS: DAKIN'S 1/4 STRENGTH (0.125%) 473 ML BTL TOP SCH (10:22)
--- NOTE | 2017-11-05 12:01 | Occ Therapy Progress Note ---
Therapy Progress Note Attempted OT treatment at 1120. Pt resting in bed, states he is having pain and is fatigued. Pt states he already had therapy today (PT) and wants to rest. Pt states he should be leaving today, but is waiting to see the doctor. Pt declined OT treatment. Pt denied needs at this time. Will continue to follow. 1, visit EULA FRENCH OT Nov 05, 2017 12:01
[2017-11-05] MEDS: metroNIDAZOLE 500 MG (FLAGYL) TAB PO SCH (12:05)
--- NOTE | 2017-11-05 12:10 | Progress Note-Hospitalist ---
Standard Progress Note Progress Notes/Assess & Plan Date Seen 11/05/17 Time Seen by Provider: 12:03 Diagnosis Severe Sepsis Assess & Plan/Chief Complaint The patient is a 62-year-old man [facility]. Details are a bit sketchy but he apparently has had a prolonged illness beginning with a hospitalization in [place]. He then developed a pressure sore and was transferred to [facility] in [place]. After treatment there he was discharged and apparently returned almost immediately in a DIRE state of health. He was then transferred to [facility] on 10/25. His general state decline steadily and he became unable to feed himself and his speech was relatively incomprehensible. On arrival here he appeared to be septic with a white blood count of 20,000. His creatinine was elevated at 2.01. Lactic acid was 2.9. Urinalysis showed WBCs too numerous to count. He ultimately grew a Mercy species from the urine. Blood cultures were negative. Chest x-ray suggested the possibility of an early pneumonia. He had been discharged from [facility] on Zyvox and cefepime IV through an internal jugular access. He was apparently taking Flagyl orally. The Zyvox was changed to vancomycin here in the cefepime continued. He has improved steadily. He has no specific complaints today and reports he is anxious to get back to [place] and resume his rehabilitation activities. Physical exam: He appears stated age. Lungs are clear to auscultation. CV is regular without murmur. Ankles show no pedal edema. Impression: Severe sepsis, pathogen not identified. 2. Pressure sore presacral. 3.recent series of calamitous illnesses poorly defined Labs Laboratory Tests 11/04/17 06:10 11/05/17 06:35 JOE GROVER MD Nov 05, 2017 12:10
[2017-11-05] MEDS ORDERED: FLUC100T6 PO (12:15)
--- NOTE | 2017-11-05 12:22 | Discharge Instructions ---
Discharge Instructions Patient Instructions Patient Instructions: Medications as listed on the discharge summary. The new medication will be fluconazole to complete a course for Mercy species in urine. Resume wound care. Resume other rehabilitation orders. The patient has a newly placed PICC line to replace the internal jugular that he arrived with. Return to The [facility] For: Decline in condition Activity & Diet Discharge Diet: ADA Diet Activity as Tolerated: Yes JOE GROVER MD Nov 05, 2017 12:22
[2017-11-05 14:39] VITALS: BP 165/79
== END 2017-11-05 14:30 | DRG 871 ==
LOC: ER 23:42 → EDUNIT# 10-30 02:23 → ER 10-30 02:25 → ICU 10-30 02:30 → 4TH 10-31 11:20
PROVIDERS: ADMIT Internal Medicine; ATTEND Internal Medicine
DX: A41.9 Sepsis, unspecified organism (principal); R65.20 Severe sepsis without septic shock; N39.0 Urinary tract infection, site not specified; N17.9 Acute kidney failure, unspecified; L89.154 Pressure ulcer of sacral region, stage 4; I69.351 Hemiplegia and hemiparesis following cerebral infarction affecting right dominant side; I69.354 Hemiplegia and hemiparesis following cerebral infarction affecting left non-dominant side; I95.89 Other hypotension; E11.9 Type 2 diabetes mellitus without complications; J44.9 Chronic obstructive pulmonary disease, unspecified; I25.10 Atherosclerotic heart disease of native coronary artery without angina pectoris; G40.909 Epilepsy, unspecified, not intractable, without status epilepticus; N18.9 Chronic kidney disease, unspecified; D64.9 Anemia, unspecified; E87.6 Hypokalemia; E83.42 Hypomagnesemia; R13.11 Dysphagia, oral phase; R53.81 Other malaise; D69.6 Thrombocytopenia, unspecified; I25.2 Old myocardial infarction; Z79.4 Long term (current) use of insulin
CPT/HCPCS: 36415; 36569; 71010; 76937; 80053; 80202; 81000; 82728; 82962; 83540; 83605; 83735; 84100; 84132; 85007; 85025; 85027; 85610; 85652; 85730; 87040; 87070; 87081; 87088; 87106; 93306; 96360